=== PATIENT | female | born 1980 | race Caucasian/White ===

== ENCOUNTER 2021-09-10 11:37 | Inpatient (IN) ==
--- NOTE | 2021-09-10 12:02 | Emergency Department Note ---
History of Present Illness General Chief complaint: Dehydration Stated complaint: DEHYDRATION Time Seen by Provider: 09/10/21 11:53 Source: patient and family (Mom) Mode of arrival: ambulatory Limitations: other (Fatigued) History of Present Illness Provider Complaint: + nausea and + vomiting Onset (ago): month(s) (3) Description of Vomiting: + food contents and + watery; no blood-streaked Description of Diarrhea: + other (Black) Associated Abdominal Pain: Yes Location of pain: + diffuse Severity: moderate Maximum Pain Intensity: 6 Quality: + cramping Pain Consistency: + intermittent Exacerbated By: + eating HPI Narrative: This patient is a 41-year-old female who presents emergency department with complaints of dehydration and abnormal lab work, in the setting of recurrent vomiting and diarrhea. Patient was seen by her outpatient provider and had laboratory work done yesterday, was sent in for electrolyte abnormalities and dehydration. Patient states her vomiting and diarrhea is not continuous, she is able to tolerate liquids and some foods at times. Yesterday she had a baked potato without any vomiting or diarrhea. She did feel some abdominal cramping. She states she feels "out of it" and is not sure she can answer questions at this time. She denies any falls or hitting her head. Mother states this has in fact been going on for several months intermittently. Patient does follow with gastroenterology through [facility]. Home Medications Medication Instructions Recorded Confirmed Type clonidine HCl 0.2 mg tablet 0.2 mg PO HS 05/31/21 09/10/21 History lamotrigine 200 mg tablet 200 mg PO BID 05/31/21 09/10/21 History norgestimate 0.25 mg-ethinyl 1 tab PO QAM 05/31/21 09/10/21 History estradiol 35 mcg tablet (Dorcas) ondansetron 4 mg disintegrating 4 mg PO Q6H PRN #20 tab 05/31/21 09/10/21 Rx tablet promethazine 25 mg rectal 25 mg NH Q6H PRN #12 ea 05/31/21 09/10/21 Rx suppository dicyclomine 20 mg tablet 20 mg PO BID 06/26/21 09/10/21 History hydroxyzine HCl 25 mg tablet 25 mg PO HS PRN 06/26/21 09/10/21 History cariprazine 4.5 mg capsule 4.5 mg PO DAILY 09/10/21 09/10/21 History (Vraylar) clonazepam 1 mg tablet 1 mg PO BID 09/10/21 09/10/21 History famotidine 20 mg tablet 20 mg PO DAILY 09/10/21 09/10/21 History omeprazole 40 mg capsule,delayed 40 mg PO DAILY 09/10/21 09/10/21 History release lisinopril 20 1 tab PO QAM #30 tab 09/13/21 09/10/21 Rx mg-hydrochlorothiazide 12.5 mg tablet Allergies Allergy/AdvReac Type Severity Reaction Status Date / Time ibuprofen Allergy Intermediate NAUSEA AND Verified 09/10/21 14:36 VOMITING tetracycline Allergy Unknown PT UNSURE Verified 09/10/21 14:36 OF REACTION Past Med/Surg History Medical History Anxiety Bipolar 1 disorder Depression Hereditary hemochromatosis Hypertension Liver lesion Obesity Surgical History H/O esophagogastroduodenoscopy EGD with EUS. 2016. Dr Bradley History of cholecystectomy 2016 - Dr Hawkins Family History Father Diabetes Hypertension Social History Smoking Status: Never smoker Hx Alcohol Use: Yes Alcohol type: beer and wine Alcohol Intake Frequency: 2-4 x/Month Hx Substance Use: No Preferred Language: Mohawk Communication Ability: Effective Integrity Manager Required: No Beliefs That Will Affect Care: None marital status: Single Current Living Situation: Parent and Family current occupational status: disabled Feels Safe at Home: Yes Assistive Devices: Glasses Review of Systems See HPI for pertinent positives & negatives. and A total of 10 systems reviewed and were otherwise negative Physical Exam Vital Signs: Vital Signs - 24 hr 09/10/21 11:47 Temperature 36.4 C L Temperature Source Oral Pulse Rate 119 H Pulse Rhythm Regular Pulse Strength Normal Respiratory Rate 20 Respiratory Effort / Characteristics Non-Labored Sponta neous Respiratory Depth Normal Respiratory Patter n Regular Pulse Oximetry 96 Oxygen Delivery Me thod Room Air Sepsis Recent Feve r Within 48 Hours No Sepsis New/Unexpla ined Change in Men savita Status N/A Sepsis Action Take n by Nursing No Action Required Physical Exam: Vital signs reviewed. Noted to be hypotensive on manual blood pressure on initial exam General: Well-appearing 41 yo female, in no significant distress. HEENT: No scleral icterus, PERRLA, neck supple. Atraumatic. Cardiovascular: Tachycardic but regular, no extra sounds Pulmonary: Clear to auscultation bilaterally, normal work of breathing. Abdomen: Soft, nontender, nondistended, positive bowel sounds. Musculoskeletal: Atraumatic, no peripheral edema. Neurologic: Patient somnolent but awake and oriented x 3, answering questions but fatigued Skin: Warm, dry, no rash Course Administered Medications Discontinued Medications Acetaminophen (Acetaminophen 325 Mg Tab) 650 mg PO Q4H PRN PRN Reason: Pain or Fever Stop: 10/10/21 17:55 Last Admin: 09/12/21 11:18 Dose: 650 mg Documented by: [id number] Admin: 09/11/21 22:12 Dose: 650 mg Documented by: [id number] Cariprazine (Cariprazine Hcl) 1 ea PO DAILY TORI Stop: 10/12/21 08:59 Last Admin: 09/13/21 09:47 Dose: 1 ea Documented by: [id number] Admin: 09/12/21 08:55 Dose: 1 ea Documented by: [id number] Clonazepam (Clonazepam 1 Mg Tab) 1 mg PO BID TORI Stop: 10/10/21 20:59 Last Admin: 09/13/21 09:51 Dose: 1 mg Documented by: [id number] Admin: 09/12/21 22:29 Dose: 1 mg Documented by: [id number] Admin: 09/12/21 09:00 Dose: 1 mg Documented by: [id number] Admin: 09/11/21 22:11 Dose: 1 mg Documented by: [id number] Admin: 09/11/21 12:28 Dose: 1 mg Documented by: [id number] Admin: 09/10/21 22:09 Dose: 1 mg Documented by: [id number] Clonidine HCl (Clonidine Hcl 0.2 Mg Tab) 0.2 mg PO HS TORI Stop: 10/10/21 20:59 Last Admin: 09/12/21 23:10 Dose: Not Given Documented by: [id number] Admin: 09/11/21 22:12 Dose: Not Given Documented by: [id number] Admin: 09/10/21 22:10 Dose: Not Given Documented by: [id number] Clonidine HCl (Clonidine Hcl 0.1 Mg Tab) 0.2 mg PO HS TORI Stop: 10/12/21 20:59 Last Admin: 09/12/21 23:13 Dose: 0.2 mg Documented by: [id number] Dicyclomine HCl (Dicyclomine Hcl 20 Mg Tab) 20 mg PO BID TORI Stop: 10/10/21 20:59 Last Admin: 09/13/21 09:47 Dose: 20 mg Documented by: [id number] Admin: 09/12/21 22:13 Dose: 20 mg Documented by: [id number] Admin: 09/12/21 08:53 Dose: 20 mg Documented by: [id number] Admin: 09/11/21 22:11 Dose: 20 mg Documented by: [id number] Admin: 09/11/21 12:24 Dose: 20 mg Documented by: [id number] Admin: 09/10/21 22:09 Dose: 20 mg Documented by: [id number] Famotidine (Famotidine 20 Mg Tab) 20 mg PO DAILY TORI Stop: 10/11/21 08:59 Last Admin: 09/13/21 09:48 Dose: 20 mg Documented by: [id number] Admin: 09/12/21 08:53 Dose: 20 mg Documented by: [id number] Admin: 09/11/21 12:24 Dose: 20 mg Documented by: [id number] Hydroxyzine HCl (Hydroxyzine Hcl 25 Mg Tab) 25 mg PO HS PRN PRN Reason: Sleep Stop: 10/10/21 17:55 Last Admin: 09/11/21 22:12 Dose: 25 mg Documented by: [id number] Admin: 09/10/21 22:14 Dose: 25 mg Documented by: [id number] Sodium Chloride (Nss 1000ml) 2,000 mls @ 999 mls/hr IV .Q2H1M ONE Stop: 09/10/21 14:11 Last Infusion: 09/10/21 14:15 Dose: 0 mls/hr Documented by: [id number] Admin: 09/10/21 12:24 Dose: 999 mls/hr Documented by: [id number] Potassium Chloride (K Ruben / Wtr) 10 meq in 100 mls @ 100 mls/hr IV Q1H TORI; Protocol Stop: 09/10/21 14:59 Last Infusion: 09/10/21 15:25 Dose: 0 mls/hr Documented by: [id number] Admin: 09/10/21 15:23 Dose: 100 mls/hr Documented by: [id number] Infusion: 09/10/21 15:15 Dose: 100 mls/hr Documented by: [id number] Admin: 09/10/21 14:15 Dose: 100 mls/hr Documented by: [id number] Potassium Chloride/Sodium Chloride (Normal Saline W/20 Meq Kcl) 20 meq in 1,000 mls @ 100 mls/hr IV .Q10H TORI; Protocol Stop: 09/11/21 14:29 Last Infusion: 09/11/21 16:39 Dose: 0 mls/hr Documented by: [id number] Admin: 09/11/21 07:57 Dose: 100 mls/hr Documented by: [id number] Infusion: 09/11/21 07:57 Dose: 100 mls/hr Documented by: [id number] Admin: 09/10/21 22:08 Dose: 100 mls/hr Documented by: [id number] Potassium Phosphate 30 mmol/ (Sodium Chloride) 510 mls @ 88 mls/hr IV ONE ONE Stop: 09/12/21 00:17 Last Infusion: 09/12/21 00:50 Dose: 0 mls/hr Documented by: [id number] Admin: 09/11/21 18:44 Dose: 88 mls/hr Documented by: [id number] Potassium Phosphate 30 mmol/Magnesium Sulfate 2 gm/ Sodium Chloride 1,014 mls @ 125 mls/hr IV .Q8H7M TORI Stop: 09/12/21 19:36 Last Infusion: 09/12/21 20:42 Dose: 0 mls/hr Documented by: [id number] Admin: 09/12/21 11:49 Dose: 125 mls/hr Documented by: [id number] Lamotrigine (Lamotrigine 100 Mg Tab) 200 mg PO BID TORI Stop: 10/10/21 20:59 Last Admin: 09/13/21 09:48 Dose: 200 mg Documented by: [id number] Admin: 09/12/21 22:12 Dose: 200 mg Documented by: [id number] Admin: 09/12/21 08:53 Dose: 200 mg Documented by: [id number] Admin: 09/11/21 22:10 Dose: 200 mg Documented by: [id number] Admin: 09/11/21 12:24 Dose: 200 mg Documented by: [id number] Admin: 09/10/21 22:10 Dose: Not Given Documented by: [id number] Lidocaine HCl (Lidocaine 2% 2 Ml Vial/Amp(20mg/Ml)) Confirm Administered Dose 4 ml INFIL .[email or web address] ONE Stop: 09/11/21 10:57 Last Admin: 09/11/21 12:24 Dose: Not Given Documented by: [id number] Miscellaneous (Cariprazine [Vraylar] -- Order Awaiting Action) 1 ea N/A QS [facility] Stop: 10/11/21 00:00 Last Admin: 09/11/21 11:54 Dose: Not Given Documented by: [id number] Admin: 09/10/21 23:25 Dose: Not Given Documented by: [id number] Ondansetron HCl (Ondansetron Inj 2 Mg/Ml 2 Ml Vial) 4 mg IV NOW STA Stop: 09/10/21 12:12 Last Admin: 09/10/21 12:25 Dose: Not Given Documented by: [id number] Ondansetron HCl (Ondansetron Inj 2 Mg/Ml 2 Ml Vial) Confirm Administered Dose 4 mg .ROUTE .Cell-A-Spot [facility] Stop: 09/11/21 10:18 Last Admin: 09/11/21 12:24 Dose: Not Given Documented by: [id number] Pantoprazole Sodium (Pantoprazole 40 Mg Tab) 40 mg PO DAILY [facility] Stop: 10/11/21 08:59 Last Admin: 09/13/21 09:48 Dose: 40 mg Documented by: [id number] Admin: 09/12/21 08:54 Dose: 40 mg Documented by: [id number] Admin: 09/11/21 12:24 Dose: 40 mg Documented by: [id number] Potassium Chloride (Potassium Chloride Crtab 20 Meq Tabcr) 40 meq PO NOW STA Stop: 09/10/21 15:35 Last Admin: 09/10/21 15:40 Dose: 40 meq Documented by: [id number] Potassium Chloride (Potassium Chloride Crtab 20 Meq Tabcr) 40 meq PO NOW STA Stop: 09/10/21 21:37 Last Admin: 09/10/21 22:10 Dose: 40 meq Documented by: [id number] Potassium Chloride (Potassium Chloride Crtab 20 Meq Tabcr) 40 meq PO NOW STA Stop: 09/11/21 17:40 Last Admin: 09/11/21 18:13 Dose: 40 meq Documented by: [id number] Promethazine HCl (Promethazine Hcl 25 Mg Tab) 25 mg PO Q6H PRN PRN Reason: Nausea And Vomiting Stop: 10/11/21 16:44 Last Admin: 09/13/21 09:00 Dose: 25 mg Documented by: [id number] Propofol (Propofol Iv Emulsion 10 Mg/Ml 20 Ml Vial) Confirm Administered Dose 200 mg IV .STK-MED ONE Stop: 09/11/21 10:57 Last Admin: 09/11/21 12:25 Dose: Not Given Documented by: [id number] Medical Decision Making Differential Diagnosis Infection, dehydration, metabolic abnormality, hypo/hyperglycemia, electrolyte disturbance, anemia, hypoxia, cardiac sources, intracerebral event, toxicologic, neurologic, as well as other pathologies. Medical Records Attestation: I reviewed the patient's medical records. Home Medications Current Medication List: was personally reviewed by me Laboratory Data Attestation: I reviewed the patient's lab results. Result diagrams: 09/12/21 08:30 09/13/21 06:49 Lab Results 09/10/21 09/10/21 09/10/21 Range/Units 12:11 12:11 12:11 WBC 14.49 H (4.8-10.8) K/uL RBC 5.76 H (4.2-5.4) M/uL Hgb 17.1 H (12.0-16.0) g/dL Hct 48.2 H (37-47) % MCV 83.7 (80-100) fL MCH 29.7 (25-34) pg MCHC 35.5 (32-36) g/dL RDW Std Deviation 37.3 (36.4-46.3) fL RDW Coeff of Rachel 12.4 (11.5-14.5) % Plt Count 439 H (130-400) K/uL MPV 10.4 (7.4-10.4) fL Immature Gran % (Auto) 0.5 % Neut % (Auto) 61.4 % Lymph % (Auto) 29.7 % Medina % (Auto) 7.5 % Eos % (Auto) 0.8 % Baso % (Auto) 0.1 % Neut # (Auto) 8.89 H (1.4-6.5) K/uL Lymph # (Auto) 4.31 H (1.2-3.4) K/uL Medina # (Auto) 1.09 H (0.11-0.59) K/uL Eos # (Auto) 0.11 (0-0.5) K/uL Baso # (Auto) 0.02 (0-0.2) K/uL Immature Gran # (Auto) 0.07 H (0.00-0.02) K/uL Sodium 125 L (136-145) mmol/L Potassium 2.6 L (3.5-5.1) mmol/L Chloride 81 L (98-107) mmol/L Carbon Dioxide 28 (21-32) mmol/L Anion Gap 16 H (3-11) BUN 31 H (6-23) mg/dl Creatinine 2.26 H (0.6-1.2) mg/dl Est Cr Clr Drug Dosing 34.2 ml/min Est GFR ( Amer) 30.5 ml/min Est GFR (Non-Af Amer) 26.3 ml/min BUN/Creatinine Ratio 13.7 (10-20) Glucose 144 H (70-99(Fasting)) mg/dl Lactate (0.4-2.0) mmol/L Calcium 9.5 (8.5-10.1) mg/dl Magnesium 2.4 (1.7-2.4) mg/dl Total Bilirubin 1.0 (0.2-1.0) mg/dl AST 56 H (13-39) U/L ALT 162 H (7-52) U/L Alkaline Phosphatase 138 H (34-104) U/L Total Creatine Kinase 129 (26-192) U/L Total Protein 7.9 (6.0-8.3) gm/dl Albumin 4.3 (3.4-5.0) gm/dl Globulin 3.6 (2.5-4.0) gm/dl Albumin/Globulin Ratio 1.2 (0.9-2) TSH 1.838 (0.300-4.500) uIu/ml 09/10/21 Range/Units 12:54 WBC (4.8-10.8) K/uL RBC (4.2-5.4) M/uL Hgb (12.0-16.0) g/dL Hct (37-47) % MCV (80-100) fL MCH (25-34) pg MCHC (32-36) g/dL RDW Std Deviation (36.4-46.3) fL RDW Coeff of Rachel (11.5-14.5) % Plt Count (130-400) K/uL MPV (7.4-10.4) fL Immature Gran % (Auto) % Neut % (Auto) % Lymph % (Auto) % Medina % (Auto) % Eos % (Auto) % Baso % (Auto) % Neut # (Auto) (1.4-6.5) K/uL Lymph # (Auto) (1.2-3.4) K/uL Medina # (Auto) (0.11-0.59) K/uL Eos # (Auto) (0-0.5) K/uL Baso # (Auto) (0-0.2) K/uL Immature Gran # (Auto) (0.00-0.02) K/uL Sodium (136-145) mmol/L Potassium (3.5-5.1) mmol/L Chloride (98-107) mmol/L Carbon Dioxide (21-32) mmol/L Anion Gap (3-11) BUN (6-23) mg/dl Creatinine (0.6-1.2) mg/dl Est Cr Clr Drug Dosing ml/min Est GFR ( Amer) ml/min Est GFR (Non-Af Amer) ml/min BUN/Creatinine Ratio (10-20) Glucose (70-99(Fasting)) mg/dl Lactate 1.3 (0.4-2.0) mmol/L Calcium (8.5-10.1) mg/dl Magnesium (1.7-2.4) mg/dl Total Bilirubin (0.2-1.0) mg/dl AST (13-39) U/L ALT (7-52) U/L Alkaline Phosphatase (34-104) U/L Total Creatine Kinase (26-192) U/L Total Protein (6.0-8.3) gm/dl Albumin (3.4-5.0) gm/dl Globulin (2.5-4.0) gm/dl Albumin/Globulin Ratio (0.9-2) TSH (0.300-4.500) uIu/ml Imaging Data Radiologist's Impression: Abdomen/Pelvis CT 09/10/21 12:57 CT abd pelvis wo con CLINICAL HISTORY: CARLA, elevated LFTs, V/D x weeks COMPARISON STUDY: 05/31/2021 CT DOSE: 629.25 mGy.cm TECHNIQUE: Standard CT of the Abdomen and Pelvis was performed without IV contrast. The patient did not receive oral contrast. A dose lowering technique was utilized adhering to the principles of ALARA. FINDINGS: Lung base: The lung bases are clear. Abdominal cavity: There is no evidence for abdominal mass, adenopathy or ascites. Liver: The liver is homogeneous in attenuation on these limited noncontrast images.. Spleen: The spleen is homogeneous in attenuation on these limited noncontrast images. Pancreas: The pancreas is homogeneous in attenuation on these limited noncontrast images. Gall Bladder: Surgical clips are present. Adrenal glands: The adrenal glands are normal in size and attenuation on these limited noncontrast images. Kidneys: The kidneys are homogeneous in attenuation on these limited noncontrast images. There is no evidence for gross renal mass, calculus or hydronephrosis bilaterally. Bowel: The bowel loops are normally placed within the abdomen and pelvis without evidence for dilatation or obstruction. There is no evidence for mass lesion. There are no inflammatory changes present. There is no evidence for free air. There is a normal appendix in the right lower quadrant. Bladder: There is no evidence for focal bladder wall thickening, calculus or diverticulum. : There is no evidence for pelvic mass or adenopathy. Vasculature: There is no evidence for focal aneurysmal dilatation of the abdominal aorta. Osseous structures: There is no acute osseous pathology. Prominent degenerative changes are seen within the spine. IMPRESSION: 1. No acute intra-abdominal or pelvic abnormality on these limited noncontrast images. 2. Nonacute findings are delineated above. ACT 112: Negative or not required by law. Electronically signed by: Miguel Angel Lerner M.D. 09/10/2021 1:44 PM ECG Data Attestation: I personally reviewed and interpreted this ECG as follows: Indication: vomiting and weakness Rate (beats per minute): 97 Rhythm: normal sinus Findings: + nonspecific-ST abn and + prolonged QT (535) Blood Pressure Blood Pressure Findings: Low blood pressure Blood Pressure Disposition: further management by hospitalist [facility] Narrative This patient was evaluated and appeared to be in no significant distress. IV access was obtained and laboratory work was drawn. Patient was placed on the cable puller and noted to be slightly tachycardic. Blood pressure was unobtainable at triage and repeated on arrival to the room, noted to be hypotensive into the 80s systolic. IV fluids were initiated and the patient's blood pressure did respond quickly. Laboratory work reveals a hyponatremia at 125, hypokalemia 2.6. Creatinine is 2.26 with a BUN of 31. This is from a baseline creatinine of 1.6 per our records. Patient's liver function studies are also noted to be slightly elevated today. CT imaging of the abdomen pelvis was performed without contrast it is negative for acute abnormality. Urinalysis is negative. Patient was medicated with 20 mEq of IV potassium for repletion. Records from [facility] were reviewed, and case was discussed with the hospitalist service for admission and further management. Impression & Plan Hypokalemia, Nausea & vomiting, Hyponatremia, Elevated LFTs, Dehydration Discharge Plan Visit Data Chief Complaint: Dehydration Stated Complaint: DEHYDRATION ED Provider: Jimena Portillo Discharge Problem: Hypokalemia, Nausea & vomiting, Hyponatremia, Elevated LFTs, Dehydration Patient Disposition: Admitted As Inpatient Condition: Good Discharge Instructions Interventions: ED Discharge Assessment Last Done: 09/10/21 17:49 Discharge Problem: Nausea & vomiting Qualifiers: Vomiting type: unspecified Qualified Code(s): R11.2 - Nausea with vomiting, unspecified
[2021-09-10] MEDS ORDERED: SODIUM CHLORIDE 0.9% 1000ML 2,000 ML IV ONE (12:11)
[2021-09-10] MEDS ORDERED: ONDANSETRON INJ 2 MG/ML 2 ML VIAL IV STA (12:11)
[2021-09-10 12:31] LABS: Basophils # (auto) 0.02 K/uL (0-0.2); Basophils % (auto) 0.1 %; Eosinophils # (auto) 0.11 K/uL (0-0.5); Eosinophils % (auto) 0.8 %; Hematocrit (blood only) 48.2 % (37-47); Hemoglobin 17.1 g/dL (12.0-16.0); Immature Granulocytes # (auto) 0.07 K/uL (0.00-0.02); Immature Granulocytes % (auto) 0.5 %; Lymphocytes # (auto) 4.31 K/uL (1.2-3.4); Lymphocytes % (auto) 29.7 %; Mean Corpuscular Hemoglobin 29.7 pg (25-34); Mean Corpuscular Hgb Conc 35.5 g/dL (32-36); Mean Corpuscular Volume 83.7 fL (80-100); Mean Platelet Volume 10.4 fL (7.4-10.4); Monocytes # (auto) 1.09 K/uL (0.11-0.59); Monocytes % (auto) 7.5 %; Neutrophils # (auto) 8.89 K/uL (1.4-6.5); Neutrophils % (auto) 61.4 %; Platelet Count 439 K/uL (130-400); RDW Coefficient of Variation 12.4 % (11.5-14.5); RDW Standard Deviation 37.3 fL (36.4-46.3); Red Blood Count 5.76 M/uL (4.2-5.4); White Blood Count 14.49 K/uL (4.8-10.8)
[2021-09-10 12:53] LABS: Albumin Globulin Ratio 1.2 (0.9-2); Albumin Level 4.3 gm/dl (3.4-5.0); BUN Creatinine Ratio 13.7 (10-20); Calcium 9.5 mg/dl (8.5-10.1); Creatinine Clr Calc Pharmacy 34.2 ml/min; Est GFR (African American) 30.5 ml/min; Est GFR (Non-African American) 26.3 ml/min; Globulin 3.6 gm/dl (2.5-4.0); Magnesium 2.4 mg/dl (1.7-2.4); Potassium 2.6 mmol/L (3.5-5.1); Total Protein 7.9 gm/dl (6.0-8.3)
--- NOTE | 2021-09-10 13:45 | CT Scan Report ---
CT abd pelvis wo con CLINICAL HISTORY: CARLA, elevated LFTs, V/D x weeks COMPARISON STUDY: 05/31/2021 CT DOSE: 629.25 mGy.cm TECHNIQUE: Standard CT of the Abdomen and Pelvis was performed without IV contrast. The patient did not receive oral contrast. A dose lowering technique was utilized adhering to the principles of ELIN Whyte FINDINGS: Lung base: The lung bases are clear. Abdominal cavity: There is no evidence for abdominal mass, adenopathy or ascites. Liver: The liver is homogeneous in attenuation on these limited noncontrast images.. Spleen: The spleen is homogeneous in attenuation on these limited noncontrast images. Pancreas: The pancreas is homogeneous in attenuation on these limited noncontrast images. Gall Bladder: Surgical clips are present. Adrenal glands: The adrenal glands are normal in size and attenuation on these limited noncontrast im ages. Kidneys: The kidneys are homogeneous in attenuation on these limited noncontrast images. There is no evidence for gross renal mass, calculus or hydronephrosis bilaterally. Bowel: The bowel loops are normally placed within the abdomen and pelvis without evidence for dilatat ion or obstruction. There is no evidence for mass lesion. There are no inflammatory changes present. There is no evidence for free air. There is a normal appendix in the right lower quadrant. Bladder: There is no evidence for focal bladder wall thickening, calculus or diverticulum. : There is no evidence for pelvic mass or adenopathy. Vasculature: There is no evidence for focal aneurysmal dilatation of the abdominal aorta. Osseous structures: There is no acute osseous pathology. Prominent degenerative changes are seen with in the spine. IMPRESSION: 1. No acute intra-abdominal or pelvic abnormality on these limited noncontrast images. 2. Nonacute findings are delineated above. ACT 112: Negative or not required by law. Electronically signed by: Miguel Angel Lerner M.D. 09/10/2021 1:44 PM
[2021-09-10] MEDS: POTASSIUM CHLORIDE / WTR 10 MEQ/100 ML PLCT IV SCH ×2 (14:15→15:23)
[2021-09-10 14:30] LABS: Appearance Urine Clear (Clear); Bacteria Urine Automated Negative (Negative); Bilirubin Urine Negative (Negative); Blood Urine 2+ (Negative); Color Urine Yellow; Glucose Urine UA Negative (Negative); Ketones Urine Trace (Negative); Leukocyte Esterase Urine Negative (Negative); Nitrite Urine Negative (Negative); Protein Urine Negative (Negative); RBC Urine Automated 0-4 /hpf (0-4); Specific Gravity Urine 1.006 (1.000-1.030); Urobilinogen Urine Negative (Negative)
--- NOTE | 2021-09-10 14:36 | History & Physical Report ---
Date of Service September 10, 2021 Assessment & Plan (1) Nausea & vomiting: Plan: Patient is 41 y/o F with PMH bipolar disorder, HTN, GERD, hereditary hemochromatosis presented to ER with c/o N/V, epigastric pain that has been ongoing since 05/2021. Had outpatient labs yesterday showing CARLA and was referred to ER. Today in ER pt initially reported hypotensive improved after IVF. WBC: 14, Lactate WNL. CT ABD/PELVIS: No acute intra-abdominal or pelvic abnormality on these limited noncontrast images In ER given 2 L NSS, Zofran Stool studies pending Symptoms may be secondary to medication side effects or underlying liver disease IVF Phenergan Tox screen, acetaminophen, labs pending Hold naltrexone, Wellbutrin GI consult CBC, CMP in a.m. (2) CARLA (acute kidney injury): Plan: BUN: 31, creatinine: 2.2. Baseline creatinine~1.[address] ABD/PELVIS: no obstruction reported Monitor renal functions, avoid nephrotoxic agents when possible IVF If no improvement consider nephrology consult (3) Hyponatremia: Plan: Na: 125 In ER given 2L NSS Repeat BMP tonight and am (4) Hypokalemia: Plan: K: 2.6 In ER given 2 K riders Will give IVF +KCl and oral Repeat BMP tonight and am (5) Elevated LFTs: Plan: T Bili: 1.0, AST: 56, ALT: 162, Alk Phos: 138; LFT's were WNL in 07/2021 ?May be secondary to medications (6) Hereditary hemochromatosis: Plan: Follows with GI Ferritin lab in am GI consult (7) Bipolar 1 disorder: Plan: Continue lamotrigine, Vraylar, clonazepam, hydroxyzine Monitor renal functions, may need to further adjust medications Psychiatry consult for polypharmacy (8) Liver lesion: Plan: History liver lesions seen on MRI liver outpatient in 07/2021. ?hepatic adenomatosis vs FNH. To follow up with hematology Continue GI follow up (9) Hypertension: Plan: Initially reported hypotensive in ER, improved after IVF Hold lisinopril/HCTZ secondary to CARLA (10) Obesity: Plan: Following with weight management at [facility] Currently hold Wellbutrin, naltrexone as above DVT Prophylaxis SCD Follows with Dr Kaia Pollack for routine care Pt was seen and care coordinated with Dr Laguerre. See addendum History of Present Illness Chief Complaint: N/V, abnormal labs Primary Care Provider: Kaia Pollack DO Patient is 41 y/o F with PMH bipolar disorder, HTN, GERD, hereditary hemochromatosis presented to ER with c/o N/V that has been ongoing since 05/2021. Followed up with PCP yesterday and had noted CARLA and was referred to ER. Reports follows with GI for hereditary hemochromatosis however did not mention the vomiting at her last visit. Patient reports on almost daily basis will have upper abdominal pain described as sharp, followed by nausea and vomiting. Reports this primarily occurs after eating dinner. Has not noted specific food that triggers this. She sometimes uses Pepto-Bismol with very good relief. Sometimes uses acetaminophen without much relief. Patient is on naltrexone and bupropion for weight loss that she reports was started at the end of summer 2020. She reports upon starting these medications had nausea, vomiting and decreased appetite. She has continued on these medications. She denies any other medication changes. She reports has chills intermittently, primarily occur with the nausea. Patient was seen at [facility] ER in 05/[address] abdomen pelvis at that time. Denies fevers, diaphoresis, hematemesis, melena, hematochezia MADDOX, syncope, vision changes, neck pain, CP, SOB, orthopnea, palpitations, cough, sore throat, choking, otalgia, rhinorrhea, paresthesias, weakness, extremity weakness, extremity edema, rashes, urinary symptoms. Allergies Allergy/AdvReac Type Severity Reaction Status Date / Time ibuprofen Allergy Intermediate NAUSEA AND Verified 09/10/21 14:36 VOMITING tetracycline Allergy Unknown PT UNSURE Verified 09/10/21 14:36 OF REACTION Home Medications Medication Instructions Recorded Confirmed Type clonidine HCl 0.2 mg tablet 0.2 mg PO HS 05/31/21 09/10/21 History lamotrigine 200 mg tablet 200 mg PO BID 05/31/21 09/10/21 History lisinopril 20 1 tab PO QAM 05/31/21 09/10/21 History mg-hydrochlorothiazide 12.5 mg tablet norgestimate 0.25 mg-ethinyl 1 tab PO QAM 05/31/21 09/10/21 History estradiol 35 mcg tablet (Dorcas) ondansetron 4 mg disintegrating 4 mg PO Q6H PRN #20 tab 05/31/21 09/10/21 Rx tablet promethazine 25 mg rectal 25 mg VA Q6H PRN #12 ea 05/31/21 09/10/21 Rx suppository bupropion HCl 300 mg 24 hr tablet, 300 mg PO QAM 06/26/21 09/10/21 History extended release dicyclomine 20 mg tablet 20 mg PO BID 06/26/21 09/10/21 History hydroxyzine HCl 25 mg tablet 25 mg PO HS PRN 06/26/21 09/10/21 History naltrexone 50 mg tablet 50 mg PO DAILY 06/26/21 09/10/21 History cariprazine 4.5 mg capsule 4.5 mg PO DAILY 09/10/21 09/10/21 History (Fernandolar) clonazepam 1 mg tablet 1 mg PO BID 09/10/21 09/10/21 History famotidine 20 mg tablet 20 mg PO DAILY 09/10/21 09/10/21 History omeprazole 40 mg capsule,delayed 40 mg PO DAILY 09/10/21 09/10/21 History release Past Med/Surg History Medical History (Updated 09/10/21 @ 15:47 by Delfina Carpenter PA-C) Anxiety Bipolar 1 disorder Depression Hereditary hemochromatosis Hypertension Liver lesion Obesity Surgical History (Updated 09/10/21 @ 15:44 by Delfina Carpenter PA-C) H/O esophagogastroduodenoscopy EGD with EUS. 2016. Dr Bradley History of cholecystectomy 2016 - Dr Hawkins Family History (Updated 09/10/21 @ 15:45 by Delfina Carpenter PA-C) Father Diabetes Hypertension Social History (Updated 09/10/21 @ 15:45 by Delfina Carpenter PA-C) Smoking Status: Never smoker Hx Alcohol Use: Yes Alcohol Intake Frequency: 2-4 x/Month Hx Substance Use: No Preferred Language: Russian marital status: Single Current Living Situation: Family current occupational status: disabled Feels Safe at Home: Yes Review of Systems Review of Systems: All systems reviewed & are unremarkable except as noted in HPI & below Physical Exam Physical Exam: General: no distress, obese Head: normocephalic, atraumatic Eyes: PERRL, EOM's intact, conjunctiva non-injected, anicteric ENT: normal inspection external ears, nose, mucous membranes moist Neck: supple, trachea midline Lungs: clear, no respiratory distress, no wheezing/rhonchi/rales CV: RRR, no murmur, no pretibial edema Abd: normal BS, soft, +tenderness to epigastric Ext: no cyanosis, no calf tenderness Neuro: A&O x 3, no focal deficits noted, normal affect Skin: warm, dry Results & Data Results & Data ([facility]) Vital Signs (Past 12 Hours) Vital Signs Temp Pulse Pulse Resp BP Pulse Ox 09/10/21 13:02 89 17 113/66 100 09/10/21 12:25 97 H 17 104/68 98 09/10/21 11:47 36.4 C L 119 H 20 96 Laboratory Results Short CBC 09/10/21 09/10/21 Range/Units 12:11 12:11 WBC 14.49 H (4.8-10.8) K/uL Hgb 17.1 H (12.0-16.0) g/dL Hct 48.2 H (37-47) % Plt Count 439 H (130-400) K/uL Creatinine 2.26 H (0.6-1.2) mg/dl BMP 09/10/21 12:11 Sodium 125 L Potassium 2.6 L Chloride 81 L Carbon Dioxide 28 BUN 31 H Creatinine 2.26 H Glucose 144 H Calcium 9.5 Cardiac Enzymes 09/10/21 Range/Units 12:11 Total Creatine Kinase 129 (26-192) U/L Liver Function 09/10/21 Range/Units 12:11 Total Bilirubin 1.0 (0.2-1.0) mg/dl AST 56 H (13-39) U/L ALT 162 H (7-52) U/L Alkaline Phosphatase 138 H (34-104) U/L Albumin 4.3 (3.4-5.0) gm/dl Urine 09/10/21 Range/Units Unknown Urine Color Yellow Urine Appearance Clear (Clear) Urine pH 6.0 (4.5-7.5) Ur Specific [place] 1.006 (1.000-1.030) Urine Protein Negative (Negative) Urine Glucose (UA) Negative (Negative) Diagnostic Findings Abdomen/Pelvis CT 09/10/21 12:57 CT abd pelvis wo con CLINICAL HISTORY: CARLA, elevated LFTs, V/D x weeks COMPARISON STUDY: 05/31/2021 CT DOSE: 629.25 mGy.cm TECHNIQUE: Standard CT of the Abdomen and Pelvis was performed without IV contrast. The patient did not receive oral contrast. A dose lowering technique was utilized adhering to the principles of ALARA. FINDINGS: Lung base: The lung bases are clear. Abdominal cavity: There is no evidence for abdominal mass, adenopathy or ascites. Liver: The liver is homogeneous in attenuation on these limited noncontrast images.. Spleen: The spleen is homogeneous in attenuation on these limited noncontrast images. Pancreas: The pancreas is homogeneous in attenuation on these limited noncontrast images. Gall Bladder: Surgical clips are present. Adrenal glands: The adrenal glands are normal in size and attenuation on these limited noncontrast images. Kidneys: The kidneys are homogeneous in attenuation on these limited noncontrast images. There is no evidence for gross renal mass, calculus or hydronephrosis bilaterally. Bowel: The bowel loops are normally placed within the abdomen and pelvis without evidence for dilatation or obstruction. There is no evidence for mass lesion. There are no inflammatory changes present. There is no evidence for free air. There is a normal appendix in the right lower quadrant. Bladder: There is no evidence for focal bladder wall thickening, calculus or diverticulum. : There is no evidence for pelvic mass or adenopathy. Vasculature: There is no evidence for focal aneurysmal dilatation of the abdominal aorta. Osseous structures: There is no acute osseous pathology. Prominent degenerative changes are seen within the spine. IMPRESSION: 1. No acute intra-abdominal or pelvic abnormality on these limited noncontrast images. 2. Nonacute findings are delineated above. ACT 112: Negative or not required by law. Electronically signed by: Miguel Angel Lerner M.D. 09/10/2021 1:44 PM Supervising Physician Co-Signing Physician Notes Patient is a 41-year-old female with history of bipolar disorder, hemochromatosis, hypertension, GERD and other medical problems presents with history of intermittent nausea, vomiting since about 3 months duration. Patient also states having upper abdominal pain which is sharp, nonradiating, usually occurs after dinner and partly improves with Pepto-Bismol, Tylenol. Patient is on multiple antipsychotics, medications to help with weight loss naltrexone, Wellbutrin. She also states having subjective fever, intermittent chills. Also reports having intermittent diarrhea. Please review HPI for complete details of presentation. Blood work suggestive of leukocytosis 14.4 9K, hemoglobin 17.1, thrombocytosis 439K, hyponatremia with sodium 125, hypokalemia 2.6, hypochloremia 81, CARLA creatinine 2.26, hyperglycemia 144, anion gap 16, elevated LFTs AST 56, ALT 162, alkaline phosphatase 138. Urine analysis showed microscopic hematuria, negative toxicology screen. CT abdomen showed no acute process. EKG showed normal sinus rhythm with prolonged QT. Nonspecific ST changes noted. Patient is admitted for management of persistent nausea, vomiting and abdominal pain due to unclear etiology. Antipsychotics, Naltr exone, OCPs likely contributing to current symptoms. Also will be managed for CARLA, hyponatremia and other electrolyte imbalances. We will keep her on clear liquid diet and n.p.o. after need midnight for EGD tomorrow. Gastroenterology consulted. Will replace electrolytes and monitor closely. Will hold naltrexone, Wellbutrin, OCPs for now. Will consult psychiatry to help with polypharmacy. Continue Pepcid, PPI for now. Hyponatremia likely prerenal secondary to GI losses. Check renal ultrasound if renal function does not improve with current management. Check HbA1c to rule out diabetes mellitus. Stool studies to rule out infection. Check ferritin and monitor LFTs in the morning. May need phlebotomy based on ferritin levels. Further evaluation of liver lesions if necessary as per GI. I personally reviewed the record. Patient is interviewed and examined at bedside. Patient's care is coordinated with Delfina Carpenter PA-C. Please refer to the documentation above for details of patient's presentation and for discussion of other issues.
[2021-09-10] MEDS ORDERED: POTASSIUM CHLORIDE CRTAB 20 MEQ TABCR PO STA ×2 (15:34→21:36)
[2021-09-10 16:30] LABS: Pregnancy Test, Urine Negative (Negative)
--- NOTE | 2021-09-10 16:30 | Electrocardiogram Report ---
Test Reason : Blood Pressure : / mmHG Vent. Rate : 097 BPM Atrial Rate : 097 BPM P-R Int : 132 ms QRS Dur : 092 ms QT Int : 422 ms P-R-T Axes : 059 003 021 degrees QTc Int : 535 ms Normal sinus rhythm Possible Left atrial enlargement Nonspecific ST abnormality Prolonged QT Abnormal ECG When compared with ECG of 27-APR-2005 07:10, ST now depressed in Anterior leads QT has lengthened Confirmed by Rl Wilson ([id number]) on 09/10/2021 4:29:50 PM Referred By: REFERRED SELF Confirmed By:Rl Wilson
[2021-09-10 17:03] LABS: Amphetamines+Metham, Urine Neg (Neg); Barbiturates, Urine Neg (Neg); Benzodiazepine, Urine Neg (Neg); Cocaine, Urine Neg (Neg); MDMA (Ecstacy), Urine Neg (Neg); Methadone, Urine Neg (Neg); Opiate, Urine Neg (Neg); Phencyclidine, Urine Neg (Neg)
[2021-09-10] MEDS ORDERED: PROMETHAZINE HCL 12.5 MG in SODIUM CHLORIDE 0.9% 50 ML IV PRN (17:56)
[2021-09-10 20:20] LABS: Calcium 8.8 mg/dl (8.5-10.1); Creatinine Clr Calc Pharmacy 49.2 ml/min; Est GFR (African American) 47.3 ml/min; Est GFR (Non-African American) 40.8 ml/min; Potassium 3.1 mmol/L (3.5-5.1)
[2021-09-10] MEDS ORDERED: POTASSIUM CHLORIDE / WTR 10 MEQ/100 ML PLCT IV STA (21:37)
[2021-09-10] MEDS: NSS + 20MEQ KCL 20 MEQ/1,000 ML BAG IV SCH (22:08)
[2021-09-10] MEDS: DICYCLOMINE HCL 20 MG TAB PO SCH (22:09)
[2021-09-10] MEDS: clonazePAM 1 MG TAB PO SCH (22:09)
[2021-09-10] MEDS: lamoTRIgine 100 MG TAB PO SCH (22:10)
[2021-09-10] MEDS: cloNIDine HCL 0.2 MG TAB PO SCH (22:10)
[2021-09-10] MEDS: hydrOXYzine HCl 25 MG TAB PO PRN (22:14)
[2021-09-11 06:51] LABS: Basophils # (auto) 0.01 K/uL (0-0.2); Basophils % (auto) 0.1 %; Eosinophils # (auto) 0.07 K/uL (0-0.5); Eosinophils % (auto) 0.7 %; Hematocrit (blood only) 42.9 % (37-47); Hemoglobin 14.9 g/dL (12.0-16.0); Immature Granulocytes # (auto) 0.04 K/uL (0.00-0.02); Immature Granulocytes % (auto) 0.4 %; Lymphocytes # (auto) 2.98 K/uL (1.2-3.4); Lymphocytes % (auto) 30.8 %; Mean Corpuscular Hemoglobin 29.6 pg (25-34); Mean Corpuscular Hgb Conc 34.7 g/dL (32-36); Mean Corpuscular Volume 85.1 fL (80-100); Mean Platelet Volume 10.4 fL (7.4-10.4); Monocytes # (auto) 1.05 K/uL (0.11-0.59); Monocytes % (auto) 10.8 %; Neutrophils # (auto) 5.53 K/uL (1.4-6.5); Neutrophils % (auto) 57.2 %; Platelet Count 309 K/uL (130-400); RDW Coefficient of Variation 12.6 % (11.5-14.5); RDW Standard Deviation 38.9 fL (36.4-46.3); Red Blood Count 5.04 M/uL (4.2-5.4); White Blood Count 9.68 K/uL (4.8-10.8)
[2021-09-11 07:19] LABS: Total Protein 6.3 gm/dl (6.0-8.3)
[2021-09-11 07:20] LABS: Albumin Globulin Ratio 1.3 (0.9-2); Albumin Level 3.6 gm/dl (3.4-5.0); BUN Creatinine Ratio 13.5 (10-20); Bilirubin Direct 0.1 mg/dl (0-0.2); Bilirubin,Total 0.8 mg/dl (0.2-1.0); Creatinine Clr Calc Pharmacy 70.2 ml/min; Est GFR (African American) 71.9 ml/min; Est GFR (Non-African American) 62.1 ml/min; Globulin 2.7 gm/dl (2.5-4.0); Potassium 3.6 mmol/L (3.5-5.1)
[2021-09-11 07:43] LABS: Estimated Average Glucose 108 mg/dl; Hemoglobin A1C 5.4 % (4.5-5.6)
[2021-09-11] MEDS: NSS + 20MEQ KCL 20 MEQ/1,000 ML BAG IV SCH (07:57)
[2021-09-11 08:25] LABS: Ferritin 138.6 ng/ml (8-388)
--- NOTE | 2021-09-11 09:12 | History & Physical Report ---
Date of Service September 11, 2021 Assessment & Plan Admission and Anticipated Discharge Date Admission Date: September 10, 2021 History of Present Illness Primary Care Provider: Kaia Pollack, Nausea, ovomiting, hyponatremia CV: RRR Resp: CTA Abd: soft A/P: EGD Allergies Allergy/AdvReac Type Severity Reaction Status Date / Time ibuprofen Allergy Intermediate NAUSEA AND Verified 09/10/21 14:36 VOMITING tetracycline Allergy Unknown PT UNSURE Verified 09/10/21 14:36 OF REACTION Home Medications Medication Instructions Recorded Confirmed Type clonidine HCl 0.2 mg tablet 0.2 mg PO HS 05/31/21 09/10/21 History lamotrigine 200 mg tablet 200 mg PO BID 05/31/21 09/10/21 History lisinopril 20 1 tab PO QAM 05/31/21 09/10/21 History mg-hydrochlorothiazide 12.5 mg tablet norgestimate 0.25 mg-ethinyl 1 tab PO QAM 05/31/21 09/10/21 History estradiol 35 mcg tablet (Dorcas) ondansetron 4 mg disintegrating 4 mg PO Q6H PRN #20 tab 05/31/21 09/10/21 Rx tablet promethazine 25 mg rectal 25 mg OR Q6H PRN #12 ea 05/31/21 09/10/21 Rx suppository bupropion HCl 300 mg 24 hr tablet, 300 mg PO QAM 06/26/21 09/10/21 History extended release dicyclomine 20 mg tablet 20 mg PO BID 06/26/21 09/10/21 History hydroxyzine HCl 25 mg tablet 25 mg PO HS PRN 06/26/21 09/10/21 History naltrexone 50 mg tablet 50 mg PO DAILY 06/26/21 09/10/21 History cariprazine 4.5 mg capsule 4.5 mg PO DAILY 09/10/21 09/10/21 History (Vraylar) clonazepam 1 mg tablet 1 mg PO BID 09/10/21 09/10/21 History famotidine 20 mg tablet 20 mg PO DAILY 09/10/21 09/10/21 History omeprazole 40 mg capsule,delayed 40 mg PO DAILY 09/10/21 09/10/21 History release Past Med/Surg History Medical History (Updated 09/10/21 @ 15:47 by Delfina Carpenter PA-C) Anxiety Bipolar 1 disorder Depression Hereditary hemochromatosis Hypertension Liver lesion Obesity Surgical History (Updated 09/10/21 @ 15:44 by Delfina Carpenter PA-C) H/O esophagogastroduodenoscopy EGD with EUS. 2016. Dr Bradley History of cholecystectomy 2016 - Dr Hawkins Family History (Updated 09/10/21 @ 15:45 by Delfina Carpenter PA-C) Father Diabetes Hypertension Social History (Updated 09/10/21 @ 15:45 by Delfina Carpenter PA-C) Smoking Status: Never smoker Hx Alcohol Use: Yes Alcohol type: beer and wine Alcohol Intake Frequency: 2-4 x/Month Hx Substance Use: No Preferred Language: Romansh Communication Ability: Effective Vascular Neurologist Required: No Beliefs That Will Affect Care: None marital status: Single Current Living Situation: Parent and Family current occupational status: disabled Feels Safe at Home: Yes Assistive Devices: None Results & Data Results & Data ([facility]) Vital Signs (Past 12 Hours) Vital Signs Temp Pulse Pulse Pulse Resp BP Pulse Ox 09/11/21 07:49 100 H 09/11/21 07:15 37.0 C 103 H 18 121/86 95 09/11/21 03:50 36.8 C 100 H 18 119/80 97 09/11/21 00:20 103 H 09/10/21 23:29 36.4 C L 110 H 18 117/80 96 Code Status & VTE Plan VTE Prophylaxis Plan VTE Prophylaxis will be ordered: Yes
--- NOTE | 2021-09-11 09:20 | Gastrointestinal Consultation ---
Date of Consultation September 11, 2021 Assessment & Plan (1) Hypokalemia: (2) Elevated LFTs: (3) Nausea & vomiting: (4) CARLA (acute kidney injury): Pt is a 41 yo female w intermittent n/v since May 2021, recently worse. Appears to be dehydrated with electrolyte imbalance. She is on Wellbutrin and Naltroxone for weight loss, wonder if perphaps n/v is related to these meds. LFTs up, will add lipase to r/o pancreatitis. She is s/p cholecystectomy, benign abd exam today.Will consider MRCP if LFTs not improved and if lipase increased as well. Other DDx: gastritis, PUD, Hpylori, gastroparesis. - NPO for EGD eval today - IVF support, correct hyponatremia - PPI daily - Antiemetics prn - Hx of liver lesions up to 52mm seen on outpt MRI 08/02 -> being followed by GI provider (YEIMI Segura) ? FNH vs fatty infiltration - Hx of Hereditary Hemochromatosis, last phlebotomy earlier this year per pt. Ferritin 58 in 07/2021. Continue f/u in GI clinic Supervising Physician Co-Signing Physician Notes Attg add: I interviewed and examined pt. She describes n/v x 2 mos occurring at night after she lies down. No abdominal pain. Vomitus looks like food she has eaten after dinner. Symptoms only occur in the evening; she is well in the morning. No NSAIDs. + intentional weight loss, has not changed her eating. Denies dysphagia, pyrosis. A/P: Gastroparesis - EGD today History of Present Illness Reason for Consultation: Nausea, vomiting Requesting Physician: Dr. Ellie Dodge Attending Physician: Dr. Ying Villalpando History of Present Illness Pt is a 41 yo female w hx of hereditary hemochromatosis, depression/anxiety, bipolar, HTN, s/p cholecystectomy, who is seen for n/v symptoms. Pt reports intermittent n/v since May. However last week it became worse. She denies associated fever, chills, abd pain. Loose stools last week. She denies any coffee ground or bloody emesis or blood in stools. On evaluation, noted to be hemoconcentrated, w hyponatremia, increased BUN/Cr. LFTs up, no lipase obtained. Utox, COVID 19, test negative. CT a/p wo contrast showed no acute findings. She denies any sick contact, travels, undercooked foods. She is on Wellbutrin and Naltrexone for weight loss started last December. Per [facility] records, she noted Wellbutrin had caused her to feel nauseaous as well. 5 lbs weight loss since 05/2021 noted in chart. She denies OTC med or herbal supplements. Denies tobacco, ETOH, marijuana products. EGD/EUS 2016 - gallstones, otherwise unremarkable. Allergies Allergy/AdvReac Type Severity Reaction Status Date / Time ibuprofen Allergy Intermediate NAUSEA AND Verified 09/10/21 14:36 VOMITING tetracycline Allergy Unknown PT UNSURE Verified 09/10/21 14:36 OF REACTION Home Medications Medication Instructions Recorded Confirmed Type clonidine HCl 0.2 mg tablet 0.2 mg PO HS 05/31/21 09/10/21 History lamotrigine 200 mg tablet 200 mg PO BID 05/31/21 09/10/21 History lisinopril 20 1 tab PO QAM 05/31/21 09/10/21 History mg-hydrochlorothiazide 12.5 mg tablet norgestimate 0.25 mg-ethinyl 1 tab PO QAM 05/31/21 09/10/21 History estradiol 35 mcg tablet (Dorcas) ondansetron 4 mg disintegrating 4 mg PO Q6H PRN #20 tab 05/31/21 09/10/21 Rx tablet promethazine 25 mg rectal 25 mg UT Q6H PRN #12 ea 05/31/21 09/10/21 Rx suppository bupropion HCl 300 mg 24 hr tablet, 300 mg PO QAM 06/26/21 09/10/21 History extended release dicyclomine 20 mg tablet 20 mg PO BID 06/26/21 09/10/21 History hydroxyzine HCl 25 mg tablet 25 mg PO HS PRN 06/26/21 09/10/21 History naltrexone 50 mg tablet 50 mg PO DAILY 06/26/21 09/10/21 History cariprazine 4.5 mg capsule 4.5 mg PO DAILY 09/10/21 09/10/21 History (Vraylar) clonazepam 1 mg tablet 1 mg PO BID 09/10/21 09/10/21 History famotidine 20 mg tablet 20 mg PO DAILY 09/10/21 09/10/21 History omeprazole 40 mg capsule,delayed 40 mg PO DAILY 09/10/21 09/10/21 History release Patient History Medical History Anxiety Bipolar 1 disorder Depression Hereditary hemochromatosis Hypertension Liver lesion Obesity Surgical History H/O esophagogastroduodenoscopy EGD with EUS. 2016. Dr Bradley History of cholecystectomy 2016 - Dr Hawkins Family History Father Diabetes Hypertension Social History Smoking Status: Never smoker Hx Alcohol Use: Yes Alcohol type: beer and wine Alcohol Intake Frequency: 2-4 x/Month Hx Substance Use: No Preferred Language: New Zealander Communication Ability: Effective Engineer Chief Required: No Beliefs That Will Affect Care: None marital status: Single Current Living Situation: Parent and Family current occupational status: disabled Feels Safe at Home: Yes Assistive Devices: None Review of Systems Review of Systems: All systems reviewed & are unremarkable except as noted in HPI & below Physical Exam Constitutional: WD/WN, vitals as above well groomed, cooperative and comfortable Eyes: PERRL, conjunctivae normal, anicteric sclerae ENMT: external ear and nose normal, oropharynx normal Respiratory: normal respiratory effort, lungs clear to auscultation Cardiovascular: RRR, no murmur, no edema Gastrointestinal (Abdomen): normal bowel sounds, soft, nontender, no hepatosplenomegaly Skin: no rashes, warm and dry no jaundice Neurologic: Motor/Sensory: no asterixis Psychiatric: A+Ox3, euthymic affect Lymphatic: no lymphedema Results & Data ([facility]) Vital Signs (Past 12 Hours) Vital Signs Temp Pulse Pulse Pulse Resp BP Pulse Ox 09/11/21 07:49 100 H 09/11/21 07:15 37.0 C 103 H 18 121/86 95 09/11/21 03:50 36.8 C 100 H 18 119/80 97 09/11/21 00:20 103 H 09/10/21 23:29 36.4 C L 110 H 18 117/80 96
--- NOTE | 2021-09-11 09:45 | Anesthesiology Consultation ---
Date of Service September 11, 2021 Assessment & Plan Chart Review Chart Review: Acceptable Risk for Surgery and Patient NOT seen in Pre Admission Testing Consults Requested none ASA ASA3 Proposed Anesthesia Anesthesia Type: MAC Risk / Benefits Reviewed With: PT / POA / Parent / Guardian, Accepts Plan and Informed Consent Obtained History Surgery Operation Date: 09/11/21 16:30 Proposed Procedures p Esophagogastroduodenoscopy Dr Doris Armenta MD Operation Date: 11/11/21 16:30 Proposed Procedures p Esophagogastroduodenoscopy Dr Dorsi Armenta MD Height/Weight Height: 5 ft 3 in Weight: 86.3 kg Allergies Allergy/AdvReac Type Severity Reaction Status Date / Time ibuprofen Allergy Intermediate NAUSEA AND Verified 09/10/21 14:36 VOMITING tetracycline Allergy Unknown PT UNSURE Verified 09/10/21 14:36 OF REACTION Medications Home Medications Medication Instructions Recorded Confirmed Last Taken clonidine HCl 0.2 mg tablet 0.2 mg PO HS 05/31/21 09/10/21 09/09/21 lamotrigine 200 mg tablet 200 mg PO BID 05/31/21 09/10/21 09/09/21 lisinopril 20 1 tab PO QAM 05/31/21 09/10/21 09/10/21 mg-hydrochlorothiazide 12.5 mg tablet norgestimate 0.25 mg-ethinyl 1 tab PO QAM 05/31/21 09/10/21 09/10/21 estradiol 35 mcg tablet (Dorcas) ondansetron 4 mg disintegrating 4 mg PO Q6H PRN #20 tab 05/31/21 09/10/21 Unknown tablet promethazine 25 mg rectal 25 mg NC Q6H PRN #12 ea 05/31/21 09/10/21 Unknown suppository bupropion HCl 300 mg 24 hr tablet, 300 mg PO QAM 06/26/21 09/10/21 09/09/21 extended release dicyclomine 20 mg tablet 20 mg PO BID 06/26/21 09/10/21 09/09/21 hydroxyzine HCl 25 mg tablet 25 mg PO HS PRN 06/26/21 09/10/21 Unknown naltrexone 50 mg tablet 50 mg PO DAILY 06/26/21 09/10/21 09/10/21 cariprazine 4.5 mg capsule 4.5 mg PO DAILY 09/10/21 09/10/21 09/09/21 (Vraylar) clonazepam 1 mg tablet 1 mg PO BID 09/10/21 09/10/21 09/09/21 famotidine 20 mg tablet 20 mg PO DAILY 09/10/21 09/10/21 09/09/21 omeprazole 40 mg capsule,delayed 40 mg PO DAILY 09/10/21 09/10/21 Unknown release Active Medications Generic Name Dose Route Start Last Admin Trade Name Fre PRN Reason Stop Dose Admin Clonazepam 1 mg 09/10/21 21:00 09/10/21 22:09 Clonazepam 1 Mg Tab PO 10/10/21 20:59 1 mg BID TORI Administration Clonidine HCl 0.2 mg 09/10/21 21:00 09/10/21 22:10 Clonidine Hcl 0.2 Mg Tab PO 10/10/21 20:59 Not Given HS TORI Dicyclomine HCl 20 mg 09/10/21 21:00 09/10/21 22:09 Dicyclomine Hcl 20 Mg Tab PO 10/10/21 20:59 20 mg BID TORI Administration Hydroxyzine HCl 25 mg 09/10/21 17:56 09/10/21 22:14 Hydroxyzine Hcl 25 Mg Tab PO 10/10/21 17:55 25 mg HS PRN Administration Sleep Potassium Chloride/Sodium Chloride 20 meq in 1,000 mls @ 100 mls/hr 09/10/21 18:30 09/11/21 07:57 Normal Saline W/20 Meq Kcl IV 09/11/21 14:29 100 mls/hr .Q10H TORI Administration Protocol Lamotrigine 200 mg 09/10/21 21:00 09/10/21 22:10 Lamotrigine 100 Mg Tab PO 10/10/21 20:59 Not Given BID TORI Miscellaneous 1 ea 09/11/21 00:00 09/10/21 23:25 Cariprazine [Vraylar] -- Order Awaiting Action N/A 10/11/21 00:00 Not Given QS TORI NPO Date Last Intake of Fluids: 09/11/21 Time Last Intake of Fluids: 00:01 Date Last Intake of Solids: 09/11/21 Time Last Intake of Solids: 00:01 Past Medical History Medical History Anxiety Bipolar 1 disorder Depression Hereditary hemochromatosis Hypertension Liver lesion Obesity Exercise / Class Metabolic Activity II 4-5 Yardwork/Stairs/Walk up hill Past Family History Family History Father Diabetes Hypertension Past Surgical History Surgical History H/O esophagogastroduodenoscopy EGD with EUS. 2016. Dr Bradley History of cholecystectomy 2015 - Dr Hawkins Past Anesthesia History No Hx of Anesthesia Complications and No Family Hx of Anesthesia Complications History of PONV No Hx of PONV and No Hx of Motion Sickness Social History Smoking Status: Never smoker Hx Alcohol Use: Yes Alcohol type: beer and wine alcohol intake frequency: holidays/special occasions only Hx Substance Use: No Physical Exam Vital Signs Last Vital Signs Temp 36.2 C L 09/11/21 09:29 Pulse 114 H 09/11/21 09:29 Resp 18 09/11/21 09:29 BP 113/77 09/11/21 09:29 Pulse Ox 95 09/11/21 09:29 Constitutional + obese ENMT Mouth: no dentition abnormality Thyromental Distance: > or= 3.5 Finger Breadths Mallampati Class: II Neck normal visual inspection Respiratory normal respiratory effort Auscultation: lungs clear to auscultation bilaterally Cardiovascular Rate/Rhythm: regular rate and regular rhythm Psychiatric Orientation: alert Testing Laboratory Results 09/11/21 06:14 09/11/21 06:14 Hemoglobin A1c 5.4 % (4.5-5.6) 09/11/21 06:14 Urine Color Yellow 09/10/21 Unknown Urine Appearance Clear (Clear) 09/10/21 Unknown Urine pH 6.0 (4.5-7.5) 09/10/21 Unknown Ur Specific [place] 1.006 (1.000-1.030) 09/10/21 Unknown Urine Protein Negative (Negative) 09/10/21 Unknown Urine Glucose (UA) Negative (Negative) 09/10/21 Unknown Urine Ketones Trace (Negative) H 09/10/21 Unknown Urine Nitrite Negative (Negative) 09/10/21 Unknown Ur Leukocyte Esterase Negative (Negative) 09/10/21 Unknown Urine WBC (Auto) 1-5 /hpf (0-5) 09/10/21 Unknown Urine RBC (Auto) 0-4 /hpf (0-4) 09/10/21 Unknown U Hyaline Cast (Auto) 1-5 /lpf (0-5) 09/10/21 Unknown U Epithel Cells (Auto) 10-20 /lpf (0-5) H 09/10/21 Unknown Urine Bacteria (Auto) Negative (Negative) 09/10/21 Unknown Urine Test Negative (Negative) 09/10/21 Unknown 09/11/21 09/10/21 09:40 Unknown Urine Test Negative POC Ur Test NEG
[2021-09-11] MEDS ORDERED: ONDANSETRON INJ 2 MG/ML 2 ML VIAL ONE (10:17)
--- NOTE | 2021-09-11 10:54 | GI REPORT ---
Patient Name: Pratima Mays Procedure Date: 09/11/2021 10:08 AM Date of : 1980 Admit Type: Inpatient Age: 41 Gender: Female Attending MD: Ying Armenta MD Procedure: Upper GI endoscopy Providers: Ying Armenta MD Referring MD: Ellie Dodge Do Indications: Nausea with vomiting Medicines: See the Anesthesia note for documentation of the administered medications Complications: No immediate complications. Estimated Blood Loss: Estimated blood loss: none. Procedure: Pre-Anesthesia Assessment: - ASA Grade Assessment: III - A patient with severe systemic disease. After obtaining informed consent, the endoscope was passed under direct vision. Throughout the procedure, the patient's blood pressure, pulse, and oxygen saturations were monitored continuously. The Endoscope was introduced through the mouth, and advanced to the fourth part of duodenum. The upper GI endoscopy was accomplished without difficulty. The patient tolerated the procedure well. Findings: The Z-line was found 38 cm from the incisors. The exam of the esophagus was otherwise normal. Hill class 1. The stomach appeared "boot shaped." There was patchy erythema in the fundus. The remainder of the stomach was normal The duodenum was normal. Biopsies taken from duodenum and from stomach. Recommendation: - Discharge patient to floor. Diet as tolerated. GES, consider trial of empiric Reglan. Of note, LFT abnl may be related to vivitrol - consider holding this medication to see if LFTs resolve; will defer to prescribing provider. Ying Armenta M.D. Ying Armenta MD 09/11/2021 10:53:57 AM This report has been signed electronically. Note Initiated On: 09/11/2021 10:08 AM Number of Addenda: 0 I attest to the content of the Intraoperative Record and orders documented therein, exceptions below {[id number]}
[2021-09-11] MEDS ORDERED: PROPOFOL IV EMULSION 10 MG/ML 20 ML VIAL IV ONE (10:56)
[2021-09-11] MEDS ORDERED: LIDOCAINE 2% 2 ML VIAL/AMP(20MG/ML) INFIL ONE (10:56)
--- NOTE | 2021-09-11 11:04 | Anesthesiology Progress Note ---
Date of Service September 11, 2021 Anesthesia Post Procedure Vital Signs Vital Signs: Temp Pulse Pulse Pulse Resp BP BP 09/11/21 09:29 36.2 C L 114 H 18 113/77 09/11/21 07:49 100 H 09/11/21 07:15 37.0 C 103 H 18 121/86 09/11/21 03:50 36.8 C 100 H 18 119/80 09/11/21 00:20 103 H 09/10/21 23:29 36.4 C L 110 H 18 117/80 09/10/21 18:14 119 H 09/10/21 18:10 36.8 C 112 H 18 101/69 09/10/21 18:03 09/10/21 17:49 16 150/86 H 09/10/21 14:57 85 16 154/84 H 09/10/21 13:02 89 17 113/66 09/10/21 12:25 97 H 17 104/68 09/10/21 11:47 36.4 C L 119 H 20 Pulse Ox Pulse Ox 09/11/21 09:29 95 09/11/21 07:49 09/11/21 07:15 95 09/11/21 03:50 97 09/11/21 00:20 09/10/21 23:29 96 09/10/21 18:14 09/10/21 18:10 95 09/10/21 18:03 95 09/10/21 17:49 98 09/10/21 14:57 96 09/10/21 13:02 100 09/10/21 12:25 98 09/10/21 11:47 96 Pain Intensity Abdomen: Pain Intensity: 4 Transfer of Care Handoff Completed per policy Notes Mental Status: alert / awake / arousable Patient Amnestic to Procedure: Yes Nausea / Vomiting: adequately controlled Pain: adequately controlled Airway Patency, RR, SpO2: stable & adequate BP & HR: stable & adequate Hydration State: stable & adequate Anesthetic Complications: no major complications apparent and see Notes below Notes: Right arm IV from floor was running smoothly to gravity, however after no effect was seen with induction medications, the upper arm was examined and the IV was found to be infiltrated. An additional site was started on the contralateral arm and the case proceeded. In recovery, the distal arm was warm and well perfused. A warm compress was applied to the affected arm and the IV was removed.
[2021-09-11] MEDS: lamoTRIgine 100 MG TAB PO SCH ×2 (12:24→22:10)
[2021-09-11] MEDS: PANTOprazole 40 MG TAB PO SCH (12:24)
[2021-09-11] MEDS: DICYCLOMINE HCL 20 MG TAB PO SCH ×2 (12:24→22:11)
[2021-09-11] MEDS: FAMOTIDINE 20 MG TAB PO SCH (12:24)
[2021-09-11] MEDS: clonazePAM 1 MG TAB PO SCH ×2 (12:28→22:11)
--- NOTE | 2021-09-11 14:27 | Psychiatric Consultation ---
Date of Consultation September 11, 2021 Impression / Recommendations Impression 41 yo female with hx of bipolar disorder, reports relative stability on current meds until summer, had been trying naltrexone and Wellbutrin for weight loss which may have destabilized mood somewhat though also attributes change in mood to stress of caring for father. (1) Bipolar 1 disorder: (2) Hyponatremia: (3) Hypokalemia: (4) CARLA (acute kidney injury): (5) Liver lesion: (6) Hereditary hemochromatosis: (7) Anxiety: * There is no indication for acute inpatient psychiatric hospitalization. The patient denies a history of psychogenic polydipsia. * Agree with holding/discontinuing naltrexone and Wellbutrin due to liver concerns, hyponatremia, and risk of cycling with high dose antidepressants in patients with bipolar disorder * multiple psychiatric medications can contribute to hyponatremia, SSRIs/SNRIs/antipsychotics are generally largest offenders though also reported with Wellbutrin and Lamictal. watch for Na to rebound off of Wellbutrin, if persists may need to taper down on lamictal since high end dose or consider contribution of Vraylar which is <1% per package labelling. * patient made aware that Vraylar is non-formulary, she believes mother may able to bring in if remains hospitalized and hospitalist clears to take as Na normalizes. Risk Factors Assessment Do You Have Access To A Gun?: No Psych History Identifying Data Pratima is a 41 yo female from [place] with familial hemochromatosis who was admitted with CARLA, hyponatremia, and hypokalemia. Consult is by hospitalist service for polypharmacy. Chief Complaint "My moods been a little all over the place but I haven't been feeling well". History of Present Illness The patient reports dehydration with N/V/GI issues leading up to admission, denies confusion. Of note Na 125 and K 2.6 in ED. She had an EGD this am and is now tolerating clears. She reports not feeling as well for a few months, timing may coincide with use of naltrexone 50 mg daily and Wellbutrin XL 300 mg qam since summer by Jennifer Oconnell. She states that the medication was for weight loss but she doesn't feel it has "done much" and if anything she notes more mood swings, primarily to depression. She denies any recent hx of kiara or other medication changes. She states that she was diagnosed with bipolar I disorder by Dr. Mills, her psychiatrist from the age of 13 yo until his [facility]. She denies psychotic symptoms or inpatient hospitalizations. She denies any SI associated with her recent depression, just has low energy/motivation, may sleep more. She continues to see her therapist regularly. Stressors include caregiver for her dad who has Parkinson's dementia. Past Psychiatric History Previous Psych History: reports dx of bipolar, anxiety, "maybe some OCD", will sign an ALVARADO for [place] to coordinate care. Outpatient Services: therapy with Florinda patel, meds by [facility] Previous Psych Admissions: denied, 1 partial hospitalization as a teen Do You Have Access To A Gun?: No History of Previous Suicide Attempt: No Past Medication Trials: she could not list them all but notes GI side effects to lithium, depakote and zoloft. Allergies Allergy/AdvReac Type Severity Reaction Status Date / Time ibuprofen Allergy Intermediate NAUSEA AND Verified 09/10/21 14:36 VOMITING tetracycline Allergy Unknown PT UNSURE Verified 09/10/21 14:36 OF REACTION Home Medications Medication Instructions Recorded Confirmed Type clonidine HCl 0.2 mg tablet 0.2 mg PO HS 05/31/21 09/10/21 History lamotrigine 200 mg tablet 200 mg PO BID 05/31/21 09/10/21 History lisinopril 20 1 tab PO QAM 05/31/21 09/10/21 History mg-hydrochlorothiazide 12.5 mg tablet norgestimate 0.25 mg-ethinyl 1 tab PO QAM 05/31/21 09/10/21 History estradiol 35 mcg tablet (Dorcas) ondansetron 4 mg disintegrating 4 mg PO Q6H PRN #20 tab 05/31/21 09/10/21 Rx tablet promethazine 25 mg rectal 25 mg [place] Q6H PRN #12 ea 05/31/21 09/10/21 Rx suppository bupropion HCl 300 mg 24 hr tablet, 300 mg PO QAM 06/26/21 09/10/21 History extended release dicyclomine 20 mg tablet 20 mg PO BID 06/26/21 09/10/21 History hydroxyzine HCl 25 mg tablet 25 mg PO HS PRN 06/26/21 09/10/21 History naltrexone 50 mg tablet 50 mg PO DAILY 06/26/21 09/10/21 History cariprazine 4.5 mg capsule 4.5 mg PO DAILY 09/10/21 09/10/21 History (Haydeebrittanykwakuhector) clonazepam 1 mg tablet 1 mg PO BID 09/10/21 09/10/21 History famotidine 20 mg tablet 20 mg PO DAILY 09/10/21 09/10/21 History omeprazole 40 mg capsule,delayed 40 mg PO DAILY 09/10/21 09/10/21 History release Family History aunt with bipolar Substance Abuse History denied Personal History Living Arrangements: Home (with parents) Employment Status: Other Marital Status: Single Number Of Children: 0 Beliefs That Will Affect Care: None Patient History Medical History Anxiety Bipolar 1 disorder Depression Hereditary hemochromatosis Hypertension Liver lesion Obesity Surgical History H/O esophagogastroduodenoscopy EGD with EUS. 2016. Dr Bradley History of cholecystectomy 2016 - Dr Hawkins Family History Father Diabetes Hypertension Social History Smoking Status: Never smoker Hx Alcohol Use: Yes Alcohol type: beer and wine Alcohol Intake Frequency: 2-4 x/Month Hx Substance Use: No Preferred Language: Greek Communication Ability: Effective Recreation Director Required: No Beliefs That Will Affect Care: None marital status: Single Current Living Situation: Parent and Family current occupational status: disabled Feels Safe at Home: Yes Assistive Devices: None Physical Exam Psychiatric: Orientation: alert and oriented x 3 Apperance: appropriately dressed and appropriately groomed Eye Contact: good eye contact Motor Behavior: no abnormal motor movements Speech: normal rate/rhythm/volume of speech Affect: no depressed affect Mood: + depressed mood Thought Process: goal directed thought process Thought Content: reality based without delusions Suicidal Thoughts: denies suicidal thoughts Homicidal Thoughts: denies homicidal thoughts Hallucinations: no auditory hallucinations and no visual hallucinations Cognition: attention grossly intact and language grossly intact Estimated Intelligence: consistent with education level In sight: + fair insight Vital Signs (Past 24 Hours): Last Vital Signs Temp 36.2 C L 09/11/21 10:54 Pulse 93 H 09/11/21 11:22 Resp 16 09/11/21 11:22 BP 116/90 09/11/21 11:22 Pulse Ox 97 09/11/21 11:22 Review of Systems All systems reviewed & are unremarkable except as noted in HPI & below Results & Data (PSY) Laboratory Results 09/11/21 09/11/21 09/11/21 Range/Units 09:40 06:14 06:14 WBC (4.8-10.8) K/uL RBC (4.2-5.4) M/uL Hgb (12.0-16.0) g/dL Hct (37-47) % MCV (80-100) fL MCH (25-34) pg MCHC (32-36) g/dL RDW Std Deviation (36.4-46.3) fL RDW Coeff of Rachel (11.5-14.5) % Plt Count (130-400) K/uL MPV (7.4-10.4) fL Immature Gran % (Auto) % Neut % (Auto) % Lymph % (Auto) % Alexander % (Auto) % Eos % (Auto) % Baso % (Auto) % Neut # (Auto) (1.4-6.5) K/uL Lymph # (Auto) (1.2-3.4) K/uL Alexander # (Auto) (0.11-0.59) K/uL Eos # (Auto) (0-0.5) K/uL Baso # (Auto) (0-0.2) K/uL Immature Gran # (Auto) (0.00-0.02) K/uL Sodium (136-145) mmol/L Potassium (3.5-5.1) mmol/L Chloride (98-107) mmol/L Carbon Dioxide (21-32) mmol/L Anion Gap (3-11) BUN (6-23) mg/dl Creatinine (0.6-1.2) mg/dl Est Cr Clr Drug Dosing ml/min Est GFR ( Amer) ml/min Est GFR (Non-Af Amer) ml/min BUN/Creatinine Ratio (10-20) Glucose (70-99(Fasting)) mg/dl Estimat Average Glucose 108 mg/dl Hemoglobin A1c 5.4 (4.5-5.6) % Calcium (8.5-10.1) mg/dl Ferritin (8-388) ng/ml Total Bilirubin (0.2-1.0) mg/dl Direct Bilirubin (0-0.2) mg/dl AST (13-39) U/L ALT (7-52) U/L Alkaline Phosphatase (34-104) U/L Total Protein (6.0-8.3) gm/dl Albumin (3.4-5.0) gm/dl Globulin (2.5-4.0) gm/dl Albumin/Globulin Ratio (0.9-2) Lipase 46 (11-82) U/L Urine Test (Negative) POC Ur Test NEG (NEG) Urine Opiates Screen (Neg) Ur Methadone, Qual (Neg) Acetaminophen (10-30) ug/ml Urine Barbiturates (Neg) Ur Phencyclidine (PCP) (Neg) U Amphetamin/Meth Scrn (Neg) MDMA (Ecstasy) Screen (Neg) U Benzodiazepines Scrn (Neg) Ur Cocaine Metabolite (Neg) U Marijuana (THC) Screen (Neg) SARS-CoV-2, RNA, NAAT (NEGATIVE) 09/11/21 09/11/21 09/10/21 Range/Units 06:14 06:14 Unknown WBC 9.68 (4.8-10.8) K/uL RBC 5.04 (4.2-5.4) M/uL Hgb 14.9 (12.0-16.0) g/dL Hct 42.9 (37-47) % MCV 85.1 (80-100) fL MCH 29.6 (25-34) pg MCHC 34.7 (32-36) g/dL RDW Std Deviation 38.9 (36.4-46.3) fL RDW Coeff of Rachel 12.6 (11.5-14.5) % Plt Count 309 (130-400) K/uL MPV 10.4 (7.4-10.4) fL Immature Gran % (Auto) 0.4 % Neut % (Auto) 57.2 % Lymph % (Auto) 30.8 % Alexander % (Auto) 10.8 % Eos % (Auto) 0.7 % Baso % (Auto) 0.1 % Neut # (Auto) 5.53 (1.4-6.5) K/uL Lymph # (Auto) 2.98 (1.2-3.4) K/uL Alexander # (Auto) 1.05 H (0.11-0.59) K/uL Eos # (Auto) 0.07 (0-0.5) K/uL Baso # (Auto) 0.01 (0-0.2) K/uL Immature Gran # (Auto) 0.04 H (0.00-0.02) K/uL Sodium 129 L (136-145) mmol/L Potassium 3.6 (3.5-5.1) mmol/L Chloride 94 L (98-107) mmol/L Carbon Dioxide 25 (21-32) mmol/L Anion Gap 10 (3-11) BUN 15 (6-23) mg/dl Creatinine 1.11 D (0.6-1.2) mg/dl Est Cr Clr Drug Dosing 70.2 ml/min Est GFR ( Amer) 71.9 ml/min Est GFR (Non-Af Amer) 62.1 ml/min BUN/Creatinine Ratio 13.5 (10-20) Glucose 112 H (70-99(Fasting)) mg/dl Estimat Average Glucose mg/dl Hemoglobin A1c (4.5-5.6) % Calcium 8.0 L (8.5-10.1) mg/dl Ferritin 138.6 (8-388) ng/ml Total Bilirubin 0.8 (0.2-1.0) mg/dl Direct Bilirubin 0.1 (0-0.2) mg/dl AST 32 (13-39) U/L ALT 104 H (7-52) U/L Alkaline Phosphatase 114 H (34-104) U/L Total Protein 6.3 D (6.0-8.3) gm/dl Albumin 3.6 (3.4-5.0) gm/dl Globulin 2.7 (2.5-4.0) gm/dl Albumin/Globulin Ratio 1.3 (0.9-2) Lipase (11-82) U/L Urine Test Negative (Negative) POC Ur Test (NEG) Urine Opiates Screen (Neg) Ur Methadone, Qual (Neg) Acetaminophen (10-30) ug/ml Urine Barbiturates (Neg) Ur Phencyclidine (PCP) (Neg) U Amphetamin/Meth Scrn (Neg) MDMA (Ecstasy) Screen (Neg) U Benzodiazepines Scrn (Neg) Ur Cocaine Metabolite (Neg) U Marijuana (THC) Screen (Neg) SARS-CoV-2, RNA, NAAT (NEGATIVE) 09/10/21 09/10/21 09/10/21 Range/Units Unknown Unknown 19:48 WBC (4.8-10.8) K/uL RBC (4.2-5.4) M/uL Hgb (12.0-16.0) g/dL Hct (37-47) % MCV (80-100) fL MCH (25-34) pg MCHC (32-36) g/dL RDW Std Deviation (36.4-46.3) fL RDW Coeff of Rachel (11.5-14.5) % Plt Count (130-400) K/uL MPV (7.4-10.4) fL Immature Gran % (Auto) % Neut % (Auto) % Lymph % (Auto) % Alexander % (Auto) % Eos % (Auto) % Baso % (Auto) % Neut # (Auto) (1.4-6.5) K/uL Lymph # (Auto) (1.2-3.4) K/uL Alexander # (Auto) (0.11-0.59) K/uL Eos # (Auto) (0-0.5) K/uL Baso # (Auto) (0-0.2) K/uL Immature Gran # (Auto) (0.00-0.02) K/uL Sodium 129 L (136-145) mmol/L Potassium 3.1 L (3.5-5.1) mmol/L Chloride 91 L (98-107) mmol/L Carbon Dioxide 27 (21-32) mmol/L Anion Gap 11 (3-11) BUN 22 (6-23) mg/dl Creatinine 1.57 H D (0.6-1.2) mg/dl Est Cr Clr Drug Dosing 49.2 ml/min Est GFR ( Amer) 47.3 ml/min Est GFR (Non-Af Amer) 40.8 ml/min BUN/Creatinine Ratio 14.0 (10-20) Glucose 139 H (70-99(Fasting)) mg/dl Estimat Average Glucose mg/dl Hemoglobin A1c (4.5-5.6) % Calcium 8.8 (8.5-10.1) mg/dl Ferritin (8-388) ng/ml Total Bilirubin (0.2-1.0) mg/dl Direct Bilirubin (0-0.2) mg/dl AST (13-39) U/L ALT (7-52) U/L Alkaline Phosphatase (34-104) U/L Total Protein (6.0-8.3) gm/dl Albumin (3.4-5.0) gm/dl Globulin (2.5-4.0) gm/dl Albumin/Globulin Ratio (0.9-2) Lipase (11-82) U/L Urine Test (Negative) POC Ur Test (NEG) Urine Opiates Screen Neg (Neg) Ur Methadone, Qual Neg (Neg) Acetaminophen (10-30) ug/ml Urine Barbiturates Neg (Neg) Ur Phencyclidine (PCP) Neg (Neg) U Amphetamin/Meth Scrn Neg (Neg) MDMA (Ecstasy) Screen Neg (Neg) U Benzodiazepines Scrn Neg (Neg) Ur Cocaine Metabolite Neg (Neg) U Marijuana (THC) Screen Neg (Neg) SARS-CoV-2, RNA, NAAT NEGATIVE (NEGATIVE) 09/10/21 Range/Units 19:48 WBC (4.8-10.8) K/uL RBC (4.2-5.4) M/uL Hgb (12.0-16.0) g/dL Hct (37-47) % MCV (80-100) fL MCH (25-34) pg MCHC (32-36) g/dL RDW Std Deviation (36.4-46.3) fL RDW Coeff of Rachel (11.5-14.5) % Plt Count (130-400) K/uL MPV (7.4-10.4) fL Immature Gran % (Auto) % Neut % (Auto) % Lymph % (Auto) % Alexander % (Auto) % Eos % (Auto) % Baso % (Auto) % Neut # (Auto) (1.4-6.5) K/uL Lymph # (Auto) (1.2-3.4) K/uL Alexander # (Auto) (0.11-0.59) K/uL Eos # (Auto) (0-0.5) K/uL Baso # (Auto) (0-0.2) K/uL Immature Gran # (Auto) (0.00-0.02) K/uL Sodium (136-145) mmol/L Potassium (3.5-5.1) mmol/L Chloride (98-107) mmol/L Carbon Dioxide (21-32) mmol/L Anion Gap (3-11) BUN (6-23) mg/dl Creatinine (0.6-1.2) mg/dl Est Cr Clr Drug Dosing ml/min Est GFR ( Amer) ml/min Est GFR (Non-Af Amer) ml/min BUN/Creatinine Ratio (10-20) Glucose (70-99(Fasting)) mg/dl Estimat Average Glucose mg/dl Hemoglobin A1c (4.5-5.6) % Calcium (8.5-10.1) mg/dl Ferritin (8-388) ng/ml Total Bilirubin (0.2-1.0) mg/dl Direct Bilirubin (0-0.2) mg/dl AST (13-39) U/L ALT (7-52) U/L Alkaline Phosphatase (34-104) U/L Total Protein (6.0-8.3) gm/dl Albumin (3.4-5.0) gm/dl Globulin (2.5-4.0) gm/dl Albumin/Globulin Ratio (0.9-2) Lipase (11-82) U/L Urine Test (Negative) POC Ur Test (NEG) Urine Opiates Screen (Neg) Ur Methadone, Qual (Neg) Acetaminophen < 3 L (10-30) ug/ml Urine Barbiturates (Neg) Ur Phencyclidine (PCP) (Neg) U Amphetamin/Meth Scrn (Neg) MDMA (Ecstasy) Screen (Neg) U Benzodiazepines Scrn (Neg) Ur Cocaine Metabolite (Neg) U Marijuana (THC) Screen (Neg) SARS-CoV-2, RNA, NAAT (NEGATIVE) Medications Administered Clonazepam (Clonazepam 1 Mg Tab) 1 mg PO BID TORI Stop: 10/10/21 20:59 Last Admin: 09/11/21 12:28 Dose: 1 mg Documented by: [id number] Admin: 09/10/21 22:09 Dose: 1 mg Documented by: [id number] Clonidine HCl (Clonidine Hcl 0.2 Mg Tab) 0.2 mg PO HS TORI Stop: 10/10/21 20:59 Last Admin: 09/10/21 22:10 Dose: Not Given Documented by: [id number] Dicyclomine HCl (Dicyclomine Hcl 20 Mg Tab) 20 mg PO BID TROI Stop: 10/10/21 20:59 Last Admin: 09/11/21 12:24 Dose: 20 mg Documented by: [id number] Admin: 09/10/21 22:09 Dose: 20 mg Documented by: [id number] Famotidine (Famotidine 20 Mg Tab) 20 mg PO DAILY TORI Stop: 10/11/21 08:59 Last Admin: 09/11/21 12:24 Dose: 20 mg Documented by: [id number] Hydroxyzine HCl (Hydroxyzine Hcl 25 Mg Tab) 25 mg PO HS PRN PRN Reason: Sleep Stop: 10/10/21 17:55 Last Admin: 09/10/21 22:14 Dose: 25 mg Documented by: [id number] Potassium Chloride/Sodium Chloride (Normal Saline W/20 Meq Kcl) 20 meq in 1,000 mls @ 100 mls/hr IV .Q10H TORI; Protocol Stop: 09/11/21 14:29 Last Admin: 09/11/21 07:57 Dose: 100 mls/hr Documented by: [id number] Infusion: 09/11/21 07:57 Dose: 100 mls/hr Documented by: [id number] Admin: 09/10/21 22:08 Dose: 100 mls/hr Documented by: [id number] Lamotrigine (Lamotrigine 100 Mg Tab) 200 mg PO BID TORI Stop: 10/10/21 20:59 Last Admin: 09/11/21 12:24 Dose: 200 mg Documented by: [id number] Admin: 09/10/21 22:10 Dose: Not Given Documented by: [id number] Miscellaneous (Cariprazine [Vraylar] -- Order Awaiting Action) 1 ea N/A QS [facility] Stop: 10/11/21 00:00 Last Admin: 09/11/21 11:54 Dose: Not Given Documented by: [id number] Admin: 09/10/21 23:25 Dose: Not Given Documented by: [id number] Pantoprazole Sodium (Pantoprazole 40 Mg Tab) 40 mg PO DAILY [facility] Stop: 10/11/21 08:59 Last Admin: 09/11/21 12:24 Dose: 40 mg Documented by: [id number] Coding Level of Care Code 63615 Inpt Consult Level 3 Diagnoses Bipolar 1 disorder F31.9 Hyponatremia E87.1 Hypokalemia E87.6 CARLA (acute kidney injury) N17.9 Liver lesion K76.9 Hereditary hemochromatosis E83.110 Anxiety F41.9
--- NOTE | 2021-09-11 16:43 | Hospitalist Progress Note ---
Date of Service September 11, 2021 Assessment & Plan (1) Nausea & vomiting: Plan: resolved and she is eating, advance diet as tolerated. (2) CARLA (acute kidney injury): Plan: resolved wtih IVF overnight, cont oral rehydration (3) Hyponatremia: Plan: Improving appropriately with IVF and rehydration efforts. Now 131, trend in am. (4) Hypokalemia: Plan: replaced, K 3.3 this evening. Gave additional PO, repeat in am. (5) Elevated LFTs: Plan: possibly 2/2 medications versus recent nausea and vomiting. Trending down. Repeat in am. (6) Hereditary hemochromatosis: Plan: Follows with GI Ferritin lab in am Phlebotomy as needed and defer management to GI provider. (7) Bipolar 1 disorder: Plan: chronic, stable. Continue lamotrigine, Vraylar, clonazepam, hydroxyzine Monitor renal functions, may need to further adjust medications Psychiatry consult for polypharmacy (8) Liver lesion: Plan: History liver lesions seen on MRI liver outpatient in 07/2021. ?hepatic adenomatosis vs FNH. To follow up with hematology Continue GI follow up (9) Hypertension: Plan: Initially reported hypotensive in ER, improved after IVF Hold lisinopril/HCTZ secondary to CARLA. Will cont to hold for now. (10) Obesity: Plan: Following with [facility] at [facility] Currently hold Wellbutrin, naltrexone as may be causing LFT elevation or contributing to her acute illness. (11) Hypophosphatemia: Plan: Phos 1.1 this evening and replacement ordered. Repeat in am. (12) Diarrhea: Plan: One episode of greenish loose stool this morning, then fine all day. Cont to stay hydrated. Stool culture when able to catch sample. (13) DVT prophylaxis: Plan: SCD Full Code Dispo-to home when feeling improved and electrolytes are corrected. Possibly tomorrow. [facility] Admission and Anticipated Discharge Date Admission Date: September 10, 2021 Subjective 41-year-old female with nausea and vomiting since May 2021 which recently worsened. Diarrhea developed in the last week and she continues to report diarrhea this morning prior to her EGD. Her dehydration and electrolyte balance is improving and she is requesting food at this time. She has been on Wellbutrin and naltrexone for weight loss since last summer. Elevated transaminase which is improving. She underwent EGD with a history of liver lesions seen on outpatient MRI August 02. She also has a history of hereditary hemochromatosis with the last phlebotomy earlier this year in July 2021. She reports having phlebotomy approximately 1-2 times per year. EGD reveals gastric emptying syndrome consider trial of empiric Reglan. Also concerned that LFTs may be related to Vivitrol. This was discussed with the patient and her mom who was at bedside. Review of Systems Review of Systems: All systems were reviewed and negative except as indicated above. Physical Exam Physical Exam: CONSTITUTIONAL: WNWD, vitals as above, generally well- appearing, NAD EYES: normal conjunctivae, no scleral icterus, ENT: external ear and nose normal, MMM NECK: trachea midline, RESPIRATORY: clear to auscultation bilaterally, no crackles, rales or wheezes, normal respiratory effort CARDIOVASCULAR: regular rate and rhythm, S1 and 2 heard without murmurs, gallops or rubs, no JVD, no peripheral edema CHEST: inspection of chest was normal GASTROINTESTINAL: soft, nontender, ND, no guarding MUSCULOSKELETAL: strength 5/5 throughout, head is normocephalic and atraumatic SKIN: warm and dry, NEUROLOGIC: CN 2-12 grossly intact, no sensory deficit, normal cognition, normal speech, no tremor PSYCHIATRIC: alert cooperative and oriented to person, place and time. Euthymic mood, makes good eye contact, language grossly intact, recent and remote memory grossly intact. Results & Data Results & Data ([facility]) Vital Signs (Past 12 Hours) Vital Signs Temp Pulse Pulse Resp BP BP Pulse Ox 09/11/21 16:00 108 H 09/11/21 15:00 36.8 C 108 H 18 143/79 H 97 09/11/21 11:22 93 H 16 116/90 97 09/11/21 11:08 96 H 16 141/81 H 98 09/11/21 10:54 36.2 C L 109 H 14 147/84 H 98 09/11/21 09:29 36.2 C L 114 H 18 113/77 95 09/11/21 07:49 100 H 09/11/21 07:15 37.0 C 103 H 18 121/86 95 Laboratory Results Short CBC 09/11/21 Range/Units 06:14 WBC 9.68 (4.8-10.8) K/uL Hgb 14.9 (12.0-16.0) g/dL Hct 42.9 (37-47) % Plt Count 309 (130-400) K/uL BMP 09/10/21 09/11/21 19:48 06:14 Sodium 129 L 129 L Potassium 3.1 L 3.6 Chloride 91 L 94 L Carbon Dioxide 27 25 BUN 22 15 Creatinine 1.57 H D 1.11 D Glucose 139 H 112 H Calcium 8.8 8.0 L Liver Function 09/11/21 Range/Units 06:14 Total Bilirubin 0.8 (0.2-1.0) mg/dl Direct Bilirubin 0.1 (0-0.2) mg/dl AST 32 (13-39) U/L ALT 104 H (7-52) U/L Alkaline Phosphatase 114 H (34-104) U/L Albumin 3.6 (3.4-5.0) gm/dl Medications Administered Current Inpatient Medications Acetaminophen (Acetaminophen 325 Mg Tab) 650 mg PO Q4H PRN PRN Reason: Pain or Fever Stop: 10/10/21 17:55 Cariprazine (Cariprazine Hcl) 1 ea PO DAILY TORI Stop: 10/12/21 08:59 Clonazepam (Clonazepam 1 Mg Tab) 1 mg PO BID TORI Stop: 10/10/21 20:59 Last Admin: 09/11/21 12:28 Dose: 1 mg Documented by: Clonidine HCl (Clonidine Hcl 0.2 Mg Tab) 0.2 mg PO HS TORI Stop: 10/10/21 20:59 Last Admin: 09/10/21 22:10 Dose: Not Given Documented by: Dicyclomine HCl (Dicyclomine Hcl 20 Mg Tab) 20 mg PO BID TORI Stop: 10/10/21 20:59 Last Admin: 09/11/21 12:24 Dose: 20 mg Documented by: Famotidine (Famotidine 20 Mg Tab) 20 mg PO DAILY TORI Stop: 10/11/21 08:59 Last Admin: 09/11/21 12:24 Dose: 20 mg Documented by: Hydroxyzine HCl (Hydroxyzine Hcl 25 Mg Tab) 25 mg PO HS PRN PRN Reason: Sleep Stop: 10/10/21 17:55 Last Admin: 09/10/21 22:14 Dose: 25 mg Documented by: Promethazine HCl 12.5 mg/ (Sodium Chloride) 50.5 mls @ 202 mls/hr IV Q6H PRN PRN Reason: Nausea And Vomiting Stop: 10/10/21 17:55 Lamotrigine (Lamotrigine 100 Mg Tab) 200 mg PO BID [facility] Stop: 10/10/21 20:59 Last Admin: 09/11/21 12:24 Dose: 200 mg Documented by: Pantoprazole Sodium (Pantoprazole 40 Mg Tab) 40 mg PO DAILY [facility] Stop: 10/11/21 08:59 Last Admin: 09/11/21 12:24 Dose: 40 mg Documented by:
[2021-09-11] MEDS ORDERED: PROMETHAZINE HCL 25 MG TAB PO PRN (16:45)
[2021-09-11 17:28] LABS: Anion Gap 8 (3-11); BUN Creatinine Ratio 9.7 (10-20); Blood Urea Nitrogen 11 mg/dl (6-23); Calcium 8.6 mg/dl (8.5-10.1); Carbon Dioxide 26 mmol/L (21-32); Chloride 97 mmol/L (98-107); Creatinine Clr Calc Pharmacy 68.9 ml/min; Est GFR (African American) 70.4 ml/min; Est GFR (Non-African American) 60.7 ml/min; Glucose 103 mg/dl (70-99(Fasting)); Potassium 3.3 mmol/L (3.5-5.1); Sodium 131 mmol/L (136-145)
[2021-09-11] MEDS ORDERED: POTASSIUM CHLORIDE CRTAB 20 MEQ TABCR PO STA (17:39)
[2021-09-11 18:05] LABS: Magnesium 1.8 mg/dl (1.7-2.4); Phosphorus < 1.0 mg/dl (2.5-4.9)
[2021-09-11] MEDS ORDERED: POTASSIUM PHOS 3 MMOL/1 ML INFUSION IV STA (18:09)
[2021-09-11] MEDS ORDERED: POTASSIUM PHOSPHATE 30 MMOL in SODIUM CHLORIDE 0.9% 500 ML IV ONE (18:30)
[2021-09-11] MEDS: cloNIDine HCL 0.2 MG TAB PO SCH (22:12)
[2021-09-11] MEDS: ACETAMINOPHEN 325 MG TAB PO PRN (22:12)
[2021-09-11] MEDS: hydrOXYzine HCl 25 MG TAB PO PRN (22:12)
[2021-09-12 08:48] LABS: Hematocrit (blood only) 42.9 % (37-47); Hemoglobin 14.2 g/dL (12.0-16.0); Mean Corpuscular Hemoglobin 29.2 pg (25-34); Mean Corpuscular Hgb Conc 33.1 g/dL (32-36); Mean Corpuscular Volume 88.1 fL (80-100); Mean Platelet Volume 10.3 fL (7.4-10.4); Platelet Count 290 K/uL (130-400); RDW Coefficient of Variation 12.8 % (11.5-14.5); Red Blood Count 4.87 M/uL (4.2-5.4); White Blood Count 7.22 K/uL (4.8-10.8)
[2021-09-12] MEDS: DICYCLOMINE HCL 20 MG TAB PO SCH ×2 (08:53→22:13)
[2021-09-12] MEDS: lamoTRIgine 100 MG TAB PO SCH ×2 (08:53→22:12)
[2021-09-12] MEDS: FAMOTIDINE 20 MG TAB PO SCH (08:53)
[2021-09-12] MEDS: PANTOprazole 40 MG TAB PO SCH (08:54)
[2021-09-12] MEDS: CARIPRAZINE HCL PO SCH (08:55)
[2021-09-12] MEDS: clonazePAM 1 MG TAB PO SCH ×2 (09:00→22:29)
[2021-09-12 09:14] LABS: BUN Creatinine Ratio 7.8 (10-20); Calcium 7.9 mg/dl (8.5-10.1); Creatinine Clr Calc Pharmacy 67.1 ml/min; Est GFR (African American) 68.2 ml/min; Est GFR (Non-African American) 58.8 ml/min; Potassium 3.7 mmol/L (3.5-5.1)
[2021-09-12 09:27] LABS: Albumin Globulin Ratio 1.1 (0.9-2); Albumin Level 3.5 gm/dl (3.4-5.0); Bilirubin,Total 0.6 mg/dl (0.2-1.0); Globulin 3.2 gm/dl (2.5-4.0); Magnesium 1.7 mg/dl (1.7-2.4); Phosphorus 1.4 mg/dl (2.5-4.9); Total Protein 6.7 gm/dl (6.0-8.3)
[2021-09-12] MEDS: ACETAMINOPHEN 325 MG TAB PO PRN (11:18)
[2021-09-12] MEDS ORDERED: POTASSIUM PHOSPHATE IV SCH (11:30)
[2021-09-12] MEDS ORDERED: MAGNESIUM SULFATE IV SCH (11:30)
[2021-09-12] MEDS ORDERED: [UNRECOGNIZED DRUG - OTHER] IV SCH (11:30)
[2021-09-12 11:55] LABS: Adenovirus F 40/41 PCR Not Detected (NotDetected); Astrovirus PCR Not Detected (NotDetected); Campylobacter PCR Not Detected (NotDetected); Clostridium diff Toxin A/B PCR Not Detected (NotDetected); Cryptosporidium PCR Not Detected (NotDetected); Cyclospora cayetanensis PCR Not Detected (NotDetected); Entamoeba histolytica PCR Not Detected (NotDetected); Enteroaggregative E.coli(EAEC) Not Detected (NotDetected); Enteropathogenic E.coli (EPEC) Not Detected (NotDetected); Enterotoxigenic E.coli (ETEC) Not Detected (NotDetected); Giardia lamblia PCR Not Detected (NotDetected); Norovirus GI/GII PCR Not Detected (NotDetected); Plesiomonas shigelloides PCR Not Detected (NotDetected); Rotavirus A PCR Not Detected (NotDetected); Salmonella PCR Not Detected (NotDetected); Sapovirus PCR Not Detected (NotDetected); Shiga-like Toxin E.coli (STEC) Not Detected (NotDetected); Shigella/Enteroinvasive E.coli Not Detected (NotDetected); Vibrio cholerae PCR Not Detected (NotDetected); Vibrio species PCR Not Detected (NotDetected); Yersinia enterocolitica PCR Not Detected (NotDetected)
--- NOTE | 2021-09-12 12:47 | Communication Note ---
Date of Service: September 12, 2021 Interim progress reviewed. Patient's Na and K improving, phos remains very low. GI work up ongoing. Is receiving non-formulary Vraylar as of this am. Signed ROIs for Sabrina higginsician, Srinivasa, and Florinda Marino and liaison confirmed appointments. No additional recs at this time. Dr. Atkinson is assuming primary clinical responsibility for consult service at 1700 if additional questions/concerns in future.
--- NOTE | 2021-09-12 14:22 | Hospitalist Progress Note ---
Date of Service September 12, 2021 Assessment & Plan (1) Nausea & vomiting: Plan: resolved and she is eating. There is concern in the outpatient records for possible gastroparesis contributing to symptoms. She was given instruction for small frequent meals. Gastric emptying study as outpatient next week. Would stop welbutrin and vivitrol at discharge with improved n/v and LFTs off this. (2) CARLA (acute kidney injury): Plan: resolved wtih IVF (3) Hyponatremia: Plan: Improving appropriately with IVF and rehydration efforts. Now 133, trend in am. (4) Hypokalemia: Plan: replaced, and now within normal level. (5) Elevated LFTs: Plan: possibly 2/2 medications versus recent nausea and vomiting. Trending down. Possibly related to medications which have been held. She also has adenomatous polyps in liver seen on MRI Aug 02. Repeat as outpatient. She has a follow-up scheduled with liver specialist. (6) Hereditary hemochromatosis: Plan: Follows with GI Ferritin lab in am Phlebotomy as needed and defer management to GI provider. She is interested in outpatient referral to hematology after discharge. (7) Bipolar 1 disorder: Plan: chronic, stable. Continue lamotrigine, Vraylar, clonazepam, hydroxyzine Monitor renal functions, may need to further adjust medications Psychiatry consult for polypharmacy (8) Liver lesion: Plan: History liver lesions seen on MRI liver outpatient in 07/2021. ?hepatic adenomatosis vs FNH. Hepatology followup as outpatient. (9) Hypertension: Plan: Initially reported hypotensive in ER, improved after IVF Hold lisinopril/HCTZ secondary to CARLA. Will cont to hold for now. (10) Obesity: Plan: Following with weight management at [facility] Currently hold Wellbutrin, naltrexone as may be causing LFT elevation or contributing to her acute illness. (11) Hypophosphatemia: Plan: Persistently low and she has not been eating much. Given additional replacement today and will repeat level in am. (12) Diarrhea: Plan: once daily loose stools, stool culture negative for infection. Imodium PRN. Cont Bentyl per home regimen. Avoid dairy products. BRAT diet advised. (13) DVT prophylaxis: Plan: SCD Full Code Dispo-to home when feeling improved and electrolytes are corrected. Possibly tomorrow. Ellie Dodge DO [facility] Hospitalist Admission and Anticipated Discharge Date Admission Date: September 10, 2021 Subjective 41-year-old female with nausea and vomiting since May 2021 which recently worsened. she is tolerating food denies nausea persistent loose stool ambulating without lightheadedness mother at bedside we all reviewed her labwork from admisson to now discussed possible discharge to home in am and alf plan with [facility] Review of Systems Review of Systems: All systems were reviewed and negative except as indicated above. Physical Exam Physical Exam: CONSTITUTIONAL: WNWD, vitals as above, generally well- appearing, NAD EYES: normal conjunctivae, no scleral icterus, ENT: external ear and nose normal, MMM NECK: trachea midline, RESPIRATORY: clear to auscultation bilaterally, no crackles, rales or wheezes, normal respiratory effort CARDIOVASCULAR: regular rate and rhythm, S1 and 2 heard without murmurs, gallops or rubs, no JVD, no peripheral edema CHEST: inspection of chest was normal GASTROINTESTINAL: soft, nontender, ND, no guarding MUSCULOSKELETAL: strength 5/5 throughout, head is normocephalic and atraumatic SKIN: warm and dry, NEUROLOGIC: CN 2-12 grossly intact, no sensory deficit, normal cognition, normal speech, no tremor PSYCHIATRIC: alert cooperative and oriented to person, place and time. Euthymic mood, makes good eye contact, language grossly intact, recent and remote memory grossly intact. Results & Data Results & Data ([facility]) Vital Signs (Past 12 Hours) Vital Signs Temp Pulse Pulse Resp BP Pulse Ox 09/12/21 11:16 37.1 C 98 H 18 126/85 100 09/12/21 07:21 36.9 C 97 H 18 119/76 95 09/12/21 07:00 100 H 09/12/21 02:40 36.8 C 89 18 128/82 100 Laboratory Results Short CBC 09/12/21 Range/Units 08:30 WBC 7.22 (4.8-10.8) K/uL Hgb 14.2 (12.0-16.0) g/dL Hct 42.9 (37-47) % Plt Count 290 (130-400) K/uL BMP 09/11/21 09/12/21 16:50 08:30 Sodium 131 L 133 L Potassium 3.3 L 3.7 Chloride 97 L 100 Carbon Dioxide 26 26 BUN 11 9 Creatinine 1.13 1.16 Glucose 103 H 120 H Calcium 8.6 7.9 L Liver Function 09/12/21 Range/Units 08:30 Total Bilirubin 0.6 (0.2-1.0) mg/dl AST 24 (13-39) U/L ALT 71 H (7-52) U/L Alkaline Phosphatase 106 H (34-104) U/L Albumin 3.5 (3.4-5.0) gm/dl Medications Administered Current Inpatient Medications Acetaminophen (Acetaminophen 325 Mg Tab) 650 mg PO Q4H PRN PRN Reason: Pain or Fever Stop: 10/10/21 17:55 Last Admin: 09/12/21 11:18 Dose: 650 mg Documented by: Cariprazine (Cariprazine Hcl) 1 ea PO DAILY TORI Stop: 10/12/21 08:59 Last Admin: 09/12/21 08:55 Dose: 1 ea Documented by: Clonazepam (Clonazepam 1 Mg Tab) 1 mg PO BID TORI Stop: 10/10/21 20:59 Last Admin: 09/12/21 09:00 Dose: 1 mg Documented by: Clonidine HCl (Clonidine Hcl 0.2 Mg Tab) 0.2 mg PO HS TORI Stop: 10/10/21 20:59 Last Admin: 09/11/21 22:12 Dose: Not Given Documented by: Dicyclomine HCl (Dicyclomine Hcl 20 Mg Tab) 20 mg PO BID TORI Stop: 10/10/21 20:59 Last Admin: 09/12/21 08:53 Dose: 20 mg Documented by: Famotidine (Famotidine 20 Mg Tab) 20 mg PO DAILY TORI Stop: 10/11/21 08:59 Last Admin: 09/12/21 08:53 Dose: 20 mg Documented by: Hydroxyzine HCl (Hydroxyzine Hcl 25 Mg Tab) 25 mg PO HS PRN PRN Reason: Sleep Stop: 10/10/21 17:55 Last Admin: 09/11/21 22:12 Dose: 25 mg Documented by: Potassium Phosphate 30 mmol/Magnesium Sulfate 2 gm/ Sodium Chloride 1,014 mls @ 125 mls/hr IV .Q8H7M TORI Stop: 09/12/21 19:36 Last Admin: 09/12/21 11:49 Dose: 125 mls/hr Documented by: Lamotrigine (Lamotrigine 100 Mg Tab) 200 mg PO BID [facility] Stop: 10/10/21 20:59 Last Admin: 09/12/21 08:53 Dose: 200 mg Documented by: Pantoprazole Sodium (Pantoprazole 40 Mg Tab) 40 mg PO DAILY [facility] Stop: 10/11/21 08:59 Last Admin: 09/12/21 08:54 Dose: 40 mg Documented by: Promethazine HCl (Promethazine Hcl 25 Mg Tab) 25 mg PO Q6H PRN PRN Reason: Nausea And Vomiting Stop: 10/11/21 16:44
[2021-09-12] MEDS ORDERED: LOPERAMIDE HCL 2 MG CAP PO PRN (16:01)
[2021-09-12] MEDS ORDERED: cloNIDine HCL 0.1 MG TAB PO SCH (21:00)
[2021-09-12] MEDS: cloNIDine HCL 0.2 MG TAB PO SCH (23:10)
[2021-09-13 07:37] LABS: BUN Creatinine Ratio 5.9 (10-20); Calcium 7.7 mg/dl (8.5-10.1); Creatinine Clr Calc Pharmacy 65.4 ml/min; Est GFR (African American) 66.1 ml/min; Est GFR (Non-African American) 57.1 ml/min; Phosphorus 3.2 mg/dl (2.5-4.9)
[2021-09-13] MEDS: DICYCLOMINE HCL 20 MG TAB PO SCH (09:47)
[2021-09-13] MEDS: CARIPRAZINE HCL PO SCH (09:47)
[2021-09-13] MEDS: PANTOprazole 40 MG TAB PO SCH (09:48)
[2021-09-13] MEDS: FAMOTIDINE 20 MG TAB PO SCH (09:48)
[2021-09-13] MEDS: lamoTRIgine 100 MG TAB PO SCH (09:48)
[2021-09-13] MEDS: clonazePAM 1 MG TAB PO SCH (09:51)
--- NOTE | 2021-09-13 11:44 | Discharge Summary ---
Date of Service September 13, 2021 Admission HPI Per Admitting Provider Chief Complaint: N/V, abnormal labs Primary Care Provider: Kaia Pollack DO Patient is 41 y/o F with PMH bipolar disorder, HTN, GERD, hereditary hemochromatosis presented to ER with c/o N/V that has been ongoing since 05/2021. Followed up with PCP yesterday and had noted CARLA and was referred to ER. Reports follows with GI for hereditary hemochromatosis however did not mention the vomiting at her last visit. Patient reports on almost daily basis will have upper abdominal pain described as sharp, followed by nausea and vomiting. Reports this primarily occurs after eating dinner. Has not noted specific food that triggers this. She sometimes uses Pepto-Bismol with very good relief. Sometimes uses acetaminophen without much relief. Patient is on naltrexone and bupropion for weight loss that she reports was started at the end of summer 2020. She reports upon starting these medications had nausea, vomiting and decreased appetite. She has continued on these medications. She denies any other medication changes. She reports has chills intermittently, primarily occur with the nausea. Patient was seen at [facility] in 05/[address] abdomen pelvis at that time. Denies fevers, diaphoresis, hematemesis, melena, hematochezia MADDOX, syncope, vision changes, neck pain, CP, SOB, orthopnea, palpitations, cough, sore throat, choking, otalgia, rhinorrhea, paresthesias, weakness, extremity weakness, extremity edema, rashes, urinary symptoms. Admission Exam Per Admitting Provider General: no distress, obese Head: normocephalic, atraumatic Eyes: PERRL, EOM's intact, conjunctiva non-injected, anicteric ENT: normal inspection external ears, nose, mucous membranes moist Neck: supple, trachea midline Lungs: clear, no respiratory distress, no wheezing/rhonchi/rales CV: RRR, no murmur, no pretibial edema Abd: normal BS, soft, +tenderness to epigastric Ext: no cyanosis, no calf tenderness Neuro: A&O x 3, no focal deficits noted, normal affect Skin: warm, dry Principal Diagnosis Nausea, vomiting Discharge Exam General: Lying comfortably in bed, not in distress, on room air HEENT: EOMI, ZENIA, MMM Chest: Clear breath sounds bilaterally, no wheezes or crackles CVS: Regular rate and rhythm, normal heart sounds, no murmur Abdomen: Soft, non tender, not distended, normal bowel sounds Neuro: Awake, alert, oriented, conversing well, non focal Extremities: No cyanosis, clubbing or edema Discharge Data Allergies Allergy/AdvReac Type Severity Reaction Status Date / Time ibuprofen Allergy Intermediate NAUSEA AND Verified 09/10/21 14:36 VOMITING tetracycline Allergy Unknown PT UNSURE Verified 09/10/21 14:36 OF REACTION Consultations 09/10/21 14:17 ED Decision to Admit Stat 09/10/21 15:34 Consult Gastroenterology Routine 09/10/21 22:00 Consult Psychiatry QSE 09/12/21 22:36 Consult Psychiatry Routine Procedures Performed Operation Date: 09/11/21 16:30 Actual Procedures p EGD Biopsy Cytology(Not Applicable) - Ying Armenta MD Operation Date: 11/11/21 16:30 <No data on this case meets the specified criteria> Ordered Studies 09/10/21 12:57 CT abd pelvis wo con Stat Hospital Course (1) Nausea & vomiting: resolved and she is eating. There is concern in the outpatient records for possible gastroparesis contributing to symptoms. She was given instruction for small frequent meals. Gastric emptying study as outpatient next week. Welbutrin and naltrexone discontinued here and at discharge with improved N/V and LFTs off this. EGD with no evidence of H pylori or active inflammation. (2) CARLA (acute kidney injury): resolved wtih IVF (3) Hyponatremia: resolved (4) Hypokalemia: resolved (5) Elevated LFTs: Trending down. Possibly 2/2 medications versus recent nausea and vomiting. Naltrexone discontinued. Recommend repeat LFTs in 1-2 weeks with PCP. She also has adenomatous polyps in liver seen on MRI Aug 02. Repeat as outpatient. She has a follow-up scheduled with liver specialist. (6) Hereditary hemochromatosis: Follows with GI Phlebotomy as needed and defer management to GI provider. She is interested in outpatient referral to hematology after discharge. Follow up with PCP for referral. (7) Bipolar 1 disorder: chronic, stable. Continue lamotrigine, Vraylar, clonazepam, hydroxyzine. Seen by psychiatry and recommendations noted. Continue follow up with psychiatry and therapist. (8) Liver lesion: History of liver lesions seen on MRI liver outpatient in 07/2021. ?hepatic adenomatosis vs FNH. Hepatology followup as outpatient. (9) Hypertension: Initially reported hypotensive in ER, improved after IVF. Now BP stable off of lisinopril/HCTZ. Recommended holding off for now and continue checking BP at home and resume when BP trends up. Follow up with PCP. (10) Obesity: Following with weight management at [facility] Discontinued wellbutrin and naltrexone here and at discharge as it may be causing LFT elevation or contributing to her acute illness. (11) Hypophosphatemia: Resolved. (12) Diarrhea: once daily loose stools, stool culture negative for infection. Imodium PRN. Cont Bentyl per home regimen. Avoid dairy products. BRAT diet advised. (13) DVT prophylaxis: Total Time Total Time Spent Total Time Spent (In Minutes): 37 minutes. Discussed discharge plan with patient at bedside and mother Karla over the phone. Answered all questions. Discharge Plan Discharge Items Patient Disposition: Home - Self-Care Reason For Visit: N/V Discharge Diagnosis: Nausea/vomiting Condition on Discharge: Good Activity: Resume your previous activity Non-emergency contact: Primary Care Provider Call non-emergency contact if: you have any medication questions Follow-up/Referrals: Florinda Marino [Other] - 09/19/21 10:00 am (pt has appts with therapist weekly.) Kaia Pollack DO [Primary Care Provider] - 09/17/21 2:00 pm (Date & Time 09/17/2021 2:00 PM Provider Megan Cramer DO Department Family [facility] ) Diet: Regular Addtl Attending Provider Instructions: It was pleasure taking care of you here. Your symptoms have significantly improved and your electrolytes are normal now. Your liver enzymes are trending down. Discontinue your naltrexone and welbutrin as they might be the culprit lesions. Hold your blood pressure medication Lisinopril/HCTZ for now. Check your blood pressure at home regularly. Resume once the blood pressure starts trending up, likely in the next few days. See your family doctor for further titration. Small frequent meals for now. Please get your gastric emptying study done. Recommend follow up with your family doctor with repeat liver enzyme test in 1-2 weeks. Follow up with your therapist and psychiatrist Follow up with your liver doctor regarding your liver lesions seen on prior MRI Follow up with your GI doctors. Follow up with blood doctor (hematology) for hemochromatosis. Your family doctor can provide you the referral. We wish you all the best. Pending Studies at Discharge: No Stand-Alone Forms: My [facility], Smoking Cessation Medications and DC Order Prescriptions: Continued dicyclomine 20 mg Tablet 20 mg PO BID RF: 0 hydroxyzine HCl 25 mg Tablet 25 mg PO HS PRN (Reason: Sleep) RF: 0 norgestimate-ethinyl estradiol [Dorcas] 0.25-35 mg-mcg tablet 1 tab PO QAM RF: 0 lamotrigine 200 mg tablet 200 mg PO BID RF: 0 clonidine HCl 0.2 mg tablet 0.2 mg PO HS RF: 0 ondansetron 4 mg tablet,disintegrating 4 mg PO Q6H PRN (Reason: nausea and vomiting) Qty: 20 RF: 0 promethazine 25 mg suppository 25 mg [place] Q6H PRN (Reason: nausea and vomiting) Qty: 12 RF: 0 clonazepam 1 mg tablet 1 mg PO BID RF: 0 omeprazole 40 mg capsule,delayed release(DR/EC) 40 mg PO DAILY RF: 0 famotidine 20 mg tablet 20 mg PO DAILY RF: 0 Vraylar 4.5 mg capsule 4.5 mg PO DAILY RF: 0 lisinopril-hydrochlorothiazide 20-12.5 mg tablet 1 tab PO QAM Qty: 30 RF: 0 Discontinued bupropion HCl 300 mg Tablet Extended Release 24 Hr 300 mg PO QAM RF: 0 naltrexone 50 mg Tablet 50 mg PO DAILY RF: 0 Discharge Orders: Discharge Order (Routine); Ordered 09/13/21 Ordered By: Julio Crawford Admission Data Admit Date/Time: 09/10/21 14:45 Attending Provider: Julio Crawford Admit Provider: Deven Laguerre Primary Care Provider: Kaia Pollack Other Providers: Ying Armenta ; Deven Laguerre ; Germania Atkinson ; Guillermina Reyna ; Kelly Matthew ; Raul Marshall ; Ellie Dodge Other Interventions: Discharge Summary Assessment (RN) Last Done: 09/11/21 10:54
== END 2021-09-13 14:25 | disposition home or self-care (01) | DRG 683 ==
LOC: ED 11:37 → 2W 14:45 → SUATTDRO 14:45 → 2W 17:49 → 3N 09-12 21:52